=== PATIENT | female | born 1975 | race Caucasian/White ===

== ENCOUNTER 2019-12-07 15:16 | Emergency (ER) | payer OTHER, SELFPAY ==
--- NOTE | 2019-12-07 | US_ITS ---
EXAMINATION: ULTRASOUND PELVIC, COMPLETE CLINICAL INFORMATION: Question torsion left ovary COMPARISON: Pelvic ultrasound 10/15/2019 TECHNIQUE: Transabdominal and transvaginal imaging of the pelvis. Spectral Doppler imaging of the left ovary was performed. FINDINGS: The patient is status post hysterectomy. The patient is status post right oophorectomy. There is free fluid in the right adnexa. No right adnexal mass. The left ovary is only visualized on transabdominal imaging. The left ovary measures 4.4 x 3.0 x 2.9 cm for a volume of 20.0 mL. Normal color Doppler and arterial and venous spectral Doppler waveforms are seen in the left ovary. There is a conflict 2.6 x 1.8 x 2.1 cm lesion in the left ovary which may represent an evolving cyst. Small amount of free fluid in the pelvis. US/US pelvic ovarian doppler IMPRESSION: There is normal color Doppler, and spectral arterial and venous waveforms in the left ovary. Complex 2.6 x 1.8 x 2.1 cm lesion in the left ovary may represent an evolving cyst. Evaluation is somewhat limited on transabdominal imaging as the ovary was not visualized transvaginally. A follow-up ultrasound would be recommended in 3 months to ensure resolution Small amount of free fluid in the pelvis.
--- NOTE | 2019-12-07 | US_ITS ---
EXAMINATION: ULTRASOUND PELVIC, COMPLETE CLINICAL INFORMATION: Question torsion left ovary COMPARISON: Pelvic ultrasound 10/15/2019 TECHNIQUE: Transabdominal and transvaginal imaging of the pelvis. Spectral Doppler imaging of the left ovary was performed. FINDINGS: The patient is status post hysterectomy. The patient is status post right oophorectomy. There is free fluid in the right adnexa. No right adnexal mass. The left ovary is only visualized on transabdominal imaging. The left ovary measures 4.4 x 3.0 x 2.9 cm for a volume of 20.0 mL. Normal color Doppler and arterial and venous spectral Doppler waveforms are seen in the left ovary. There is a conflict 2.6 x 1.8 x 2.1 cm lesion in the left ovary which may represent an evolving cyst. Small amount of free fluid in the pelvis. US/US transvaginal IMPRESSION: There is normal color Doppler, and spectral arterial and venous waveforms in the left ovary. Complex 2.6 x 1.8 x 2.1 cm lesion in the left ovary may represent an evolving cyst. Evaluation is somewhat limited on transabdominal imaging as the ovary was not visualized transvaginally. A follow-up ultrasound would be recommended in 3 months to ensure resolution Small amount of free fluid in the pelvis.
[2019-12-07 17:41] VITALS: BP 145/79; PULSE 81; RESP 16; O2SAT 97; BMI 30.7
--- NOTE | 2019-12-07 18:18 | US_ITS ---
EXAMINATION: ULTRASOUND PELVIC, COMPLETE CLINICAL INFORMATION: Question torsion left ovary COMPARISON: Pelvic ultrasound 10/15/2019 TECHNIQUE: Transabdominal and transvaginal imaging of the pelvis. Spectral Doppler imaging of the left ovary was performed. FINDINGS: The patient is status post hysterectomy. The patient is status post right oophorectomy. There is free fluid in the right adnexa. No right adnexal mass. The left ovary is only visualized on transabdominal imaging. The left ovary measures 4.4 x 3.0 x 2.9 cm for a volume of 20.0 mL. Normal color Doppler and arterial and venous spectral Doppler waveforms are seen in the left ovary. There is a conflict 2.6 x 1.8 x 2.1 cm lesion in the left ovary which may represent an evolving cyst. Small amount of free fluid in the pelvis. US/US pelvic complete IMPRESSION: There is normal color Doppler, and spectral arterial and venous waveforms in the left ovary. Complex 2.6 x 1.8 x 2.1 cm lesion in the left ovary may represent an evolving cyst. Evaluation is somewhat limited on transabdominal imaging as the ovary was not visualized transvaginally. A follow-up ultrasound would be recommended in 3 months to ensure resolution Small amount of free fluid in the pelvis.
--- NOTE | 2019-12-07 18:23 | ED.ABDPAIN ---
HPI - Abdominal Pain General Chief Complaint: Abdominal Pain Stated Complaint: abd pain Time Seen by Provider: 12/07/19 17:30 Source: patient Mode of arrival: ambulatory Limitations: no limitations History of Present Illness HPI narrative: Patient is a 44-year-old female with a past medical history of endometriosis, left ovarian cyst, hysterectomy with only left ovary remaining, anxiety depression presents with on and off abdominal pain worsening in the last few days. States she has foul-smelling stool, calls it a 6 on the stool chart, denies any recent antibiotics or travel. she describes the pain as a pressure and squeezing almost like a contraction which takes her breath away. She also has associated low back pain. She does see an endometriosis specialist at [facility] in [place] and he is concerned about ovarian entrapment. she states he also referred her to a GI specialist because she may have a sphincter issue, she has an appointment in December. She denies fever, nausea vomiting, chest pain or sob. She has tried cyclobenzaprine for pain control with no success. Related Data Home Medications Medication Instructions Recorded Confirmed cetirizine [Zyrtec] 10 mg PO DAILY 12/07/19 12/07/19 citalopram 20 mg PO DAILY 12/07/19 12/07/19 estradiol 1 applic VAGINAL 3XW 12/07/19 12/07/19 hydroxyzine HCl 1 tab PO DAILY 12/07/19 12/07/19 naproxen sodium 500 mg PO Q4-6H 12/07/19 12/07/19 omeprazole 20 mg PO DAILY 12/07/19 12/07/19 oxybutynin chloride 1 tab PO DAILY 12/07/19 12/07/19 Allergies Allergy/AdvReac Type Severity Reaction Status Date / Time vancomycin [VANCOMYCIN] Allergy Mild RASH, Verified 12/07/19 19:41 itchy scalp doxycycline [DOXYCYCLINE] AdvReac Intermediate VOMITING, Verified 12/07/19 19:41 DIARRHEA shellfish derived AdvReac Mild NAUSEA Verified 12/07/19 19:41 seasonal/environmental Allergy Unknown sinusitis Uncoded 12/07/19 19:41 allergi Review of Systems Review of Systems Constitutional: No Weight loss, No Fever, No Chills, No Night Sweats, No Fatigue, No Malaise Eyes: No Eye Pain, No Swelling, No Redness, No Foreign Body, No Discharge, No Vision Changes Cardiovascular: No Chest Pain, No SOB, No Dyspnea on Exertion, No Orthopnea, No Edema, No Palpitations Respiratory: No Cough, No Sputum, No Wheezing, No Smoke Exposure, No Dyspnea Gastrointestinal: +abd pn, +irregular foul smelling stools, + gas Genitourinary: no irregular bleeding, No Dysuria, No Urinary Frequency, No Hematuria, No Urinary Incontinence, No Urgency, No Flank Pain, No Urinary Flow Changes, No Hesitancy Musculoskeletal: + low back pain, No joint pain, No Myalgias, No Joint Swelling Skin: No Skin Lesions, No rash Neuro: No Weakness, No Numbness, No Paresthesias, No Loss of Consciousness, No Dizziness, No Headache Yes all other systems are reviewed and are negative Physical Exam Vital Signs: Vital Signs: Vital Signs Pulse Resp BP Pulse Ox 12/07/19 22:00 73 15 117/69 98 12/07/19 19:24 16 145/76 H 98 12/07/19 17:41 81 16 145/79 H 97 Body Mass Index 30.7 Const: General: cooperative, healthy appearing, comfortable, no acute distress and well developed Nutritional Appearance: obese Orientation/consciousness: patient oriented x3 Limitations: no limitations HENMT: Head: Yes normal to inspection Eyes: General: appearance normal, both eyes and all related structures Pupils: Equal, round and reactive pupils present Neck: Neck: Yes normal visual inspection, Yes full ROM and Yes supple Resp: Effort & Inspection: normal respiratory effort Auscultation: clear to auscultation bilaterally, no crackles, no rales, no rhonchi and no wheezes Cardio: Rate: regular rate Rhythm: regular rhythm Heart sounds: S1 normal heart sound present and S2 normal heart sound present GI: Inspection: Yes normal to inspection Palpation (GI): Soft to palpation and Tenderness to palpation present (GI) in the LLQ, in the RLQ and suprapubicly; not at McBurney's point, Gill's sign negative and Rovsing's sign negative Auscultation: normal bowel sounds Skin: General skin exam: no rashes or lesions noted Neuro: General: patient oriented x3 Cranial nerves: Yes Equal, round and reactive pupils present Extrem: General: Yes normal to inspection and Yes no pedal edema Psych: Appearance: grossly normal Course Course Course Narrative: 44-year-old female with past medical history as endometriosis status post hysterectomy with only a left ovary remaining, she has a known cyst on that ovary, states she has been having abdominal pain for 3 days and foul-smelling abnormal stools, has associated low back pain, denies fever, travel or sick contacts. Will get ovarian ultrasound to rule out torsion, give IV fluids, pain medication, get labs and stool culture, WBC, C diff, ova and parasites. 8:15pm Labs are all grossly normal, UA negative for infection, ultrasound revealed the known left ovarian cysts but no torsion, patient is still waiting for pain medication. will reassess after she receives it. patient also states she has some reflux. will give a GI cocktail. 11:25pm patient feels slightly better, she already has a physician's she sees for her endometriosis in [place] and for this cyst, she will follow-up with him. MDM - Abdominal Pain Lab Data Attestation: I reviewed the patient's lab results. Lab results narrative: urine negative, all stool tests negative for infection or blood thus far, ova and parasites still pending. Result diagrams: 12/07/19 19:22 12/07/19 19:22 Labs: Lab Results 12/07/19 12/07/19 12/07/19 Range/Units 19:22 19:22 19:22 WBC 6.5 (4.8-10.8) X10*3/uL RBC 4.11 L (4.20-5.50) X10*6/uL Hgb 12.3 (12.0-16.0) g/dl Hct 37.4 (37-47) % MCV 91.0 (80-98) fL MCH 29.9 (27.0-33.0) pg MCHC 32.9 (31.0-35.0) g/dl RDW 12.5 (11.0-16.0) % Plt Count 178 (160-400) X10*3/uL MPV 9.7 (9.4-12.3) fL Immature Gran % (Auto) 0.3 (0.0-0.4) % Neut % (Auto) 61.6 (45-73) % Lymph % (Auto) 29.6 (20-40) % [place] % (Auto) 6.5 (2-11) % Eos % (Auto) 1.5 (0-4) % Baso % (Auto) 0.5 (0-2) % Lymph # (Auto) 1.9 (1.2-4.9) X10*3/uL [place] # (Auto) 0.4 (0.1-1.2) X10*3/uL Eos # (Auto) 0.1 (0.0-0.4) X10*3/uL Baso # (Auto) 0.0 (0.0-0.2) X10*3/uL Abs Immat Gran (auto) 0.02 (0.00-0.03) X10*3/uL Absolute Neuts (auto) 4.0 (2.0-8.3) X10*3/uL Absolute Nucleated RBC 0.000 (0.0-0.012) X10*3/uL Nucleated RBC % (auto) 0.0 (0.0-0.2) /100WBC Hold Blue Top SEE NOTE Sodium 139 (135-145) mmol/L Potassium 4.0 (3.3-5.1) mmol/l Chloride 106 (96-108) mmol/L Carbon Dioxide 26 (22-29) mmol/L Anion Gap 11 L (12-20) BUN 11 (9-16) mg/dL Creatinine 0.82 (0.5-1.4) mg/dL Estim Creat Clear Calc 94.6 Estimated GFR > 60 Random Glucose 114 (60-115) mg/dL Calcium 8.6 (8.4-10.2) mg/dL Total Bilirubin 0.4 (0.0-1.0) mg/dL AST 19 (5-31) U/L ALT 13 (0-31) U/L Alkaline Phosphatase 75 (39-117) U/L Total Protein 6.4 L (6.5-8.0) g/dL Albumin 3.9 (3.5-5.0) g/dL Lipase 54 (8-78) U/L Urine Color Urine Appearance Urine pH (5.0-8.0) Ur Specific [place] (1.005-1.025) Urine Protein (NEG-TRACE) MG/DL Urine Glucose (UA) (NEG) MG/DL Urine Ketones (NEG) MG/DL Urine Blood (NEG) Urine Nitrite (NEG) Ur Leukocyte Esterase (NEG) Stool Occult Blood (NEG) Stool Leukocytes, Qual (NEGATIVE) C. difficile Toxin A&B (Negative) C. difficile Antigen (Negative) C. difficile Interpret 12/07/19 12/07/19 12/07/19 Range/Units 19:22 20:45 20:45 WBC (4.8-10.8) X10*3/uL RBC (4.20-5.50) X10*6/uL Hgb (12.0-16.0) g/dl Hct (37-47) % MCV (80-98) fL MCH (27.0-33.0) pg MCHC (31.0-35.0) g/dl RDW (11.0-16.0) % Plt Count (160-400) X10*3/uL MPV (9.4-12.3) fL Immature Gran % (Auto) (0.0-0.4) % Neut % (Auto) (45-73) % Lymph % (Auto) (20-40) % [place] % (Auto) (2-11) % Eos % (Auto) (0-4) % Baso % (Auto) (0-2) % Lymph # (Auto) (1.2-4.9) X10*3/uL [place] # (Auto) (0.1-1.2) X10*3/uL Eos # (Auto) (0.0-0.4) X10*3/uL Baso # (Auto) (0.0-0.2) X10*3/uL Abs Immat Gran (auto) (0.00-0.03) X10*3/uL Absolute Neuts (auto) (2.0-8.3) X10*3/uL Absolute Nucleated RBC (0.0-0.012) X10*3/uL Nucleated RBC % (auto) (0.0-0.2) /100WBC Hold Blue Top Sodium (135-145) mmol/L Potassium (3.3-5.1) mmol/l Chloride (96-108) mmol/L Carbon Dioxide (22-29) mmol/L Anion Gap (12-20) BUN (9-16) mg/dL Creatinine (0.5-1.4) mg/dL Estim Creat Clear Calc Estimated GFR Random Glucose (60-115) mg/dL Calcium (8.4-10.2) mg/dL Total Bilirubin (0.0-1.0) mg/dL AST (5-31) U/L ALT (0-31) U/L Alkaline Phosphatase (39-117) U/L Total Protein (6.5-8.0) g/dL Albumin (3.5-5.0) g/dL Lipase (8-78) U/L Urine Color YELLOW Urine Appearance CLEAR Urine pH 7.5 (5.0-8.0) Ur Specific [place] 1.015 (1.005-1.025) Urine Protein NEG (NEG-TRACE) MG/DL Urine Glucose (UA) NEG (NEG) MG/DL Urine Ketones NEG (NEG) MG/DL Urine Blood NEG (NEG) Urine Nitrite NEG (NEG) Ur Leukocyte Esterase NEG (NEG) Stool Occult Blood NEG (NEG) Stool Leukocytes, Qual (NEGATIVE) C. difficile Toxin A&B Negative (Negative) C. difficile Antigen Negative (Negative) C. difficile Interpret SEE NOTE 12/07/19 Range/Units 20:45 WBC (4.8-10.8) X10*3/uL RBC (4.20-5.50) X10*6/uL Hgb (12.0-16.0) g/dl Hct (37-47) % MCV (80-98) fL MCH (27.0-33.0) pg MCHC (31.0-35.0) g/dl RDW (11.0-16.0) % Plt Count (160-400) X10*3/uL MPV (9.4-12.3) fL Immature Gran % (Auto) (0.0-0.4) % Neut % (Auto) (45-73) % Lymph % (Auto) (20-40) % [place] % (Auto) (2-11) % Eos % (Auto) (0-4) % Baso % (Auto) (0-2) % Lymph # (Auto) (1.2-4.9) X10*3/uL [place] # (Auto) (0.1-1.2) X10*3/uL Eos # (Auto) (0.0-0.4) X10*3/uL Baso # (Auto) (0.0-0.2) X10*3/uL Abs Immat Gran (auto) (0.00-0.03) X10*3/uL Absolute Neuts (auto) (2.0-8.3) X10*3/uL Absolute Nucleated RBC (0.0-0.012) X10*3/uL Nucleated RBC % (auto) (0.0-0.2) /100WBC Hold Blue Top Sodium (135-145) mmol/L Potassium (3.3-5.1) mmol/l Chloride (96-108) mmol/L Carbon Dioxide (22-29) mmol/L Anion Gap (12-20) BUN (9-16) mg/dL Creatinine (0.5-1.4) mg/dL Estim Creat Clear Calc Estimated GFR Random Glucose (60-115) mg/dL Calcium (8.4-10.2) mg/dL Total Bilirubin (0.0-1.0) mg/dL AST (5-31) U/L ALT (0-31) U/L Alkaline Phosphatase (39-117) U/L Total Protein (6.5-8.0) g/dL Albumin (3.5-5.0) g/dL Lipase (8-78) U/L Urine Color Urine Appearance Urine pH (5.0-8.0) Ur Specific [place] (1.005-1.025) Urine Protein (NEG-TRACE) MG/DL Urine Glucose (UA) (NEG) MG/DL Urine Ketones (NEG) MG/DL Urine Blood (NEG) Urine Nitrite (NEG) Ur Leukocyte Esterase (NEG) Stool Occult Blood (NEG) Stool Leukocytes, Qual NEGATIVE (NEGATIVE) C. difficile Toxin A&B (Negative) C. difficile Antigen (Negative) C. difficile Interpret Imaging Data US pelvis: Attestation: I personally reviewed and interpreted this imaging study as follows: My impression: cyst left ovary Radiologist's impression: Dav Anne 44 F 1975 [place] [id number] Ultrasound Report Signed Patient: Jim Anne#: [id number] : 1975Acct:[id number] Age/Sex: 44 / FADM Date: 12/07/19 Loc: .ED Attending Dr: Ordering Physician: AMBER LOVING Date of Service: 12/07/19 Procedure(s): US pelvic complete Accession Number(s): [id number] cc: AMBER LOVING~ EXAMINATION: ULTRASOUND PELVIC, COMPLETE CLINICAL INFORMATION: Question torsion left ovary COMPARISON: Pelvic ultrasound 10/15/2019 TECHNIQUE: Transabdominal and transvaginal imaging of the pelvis. Spectral Doppler imaging of the left ovary was performed. FINDINGS: The patient is status post hysterectomy. The patient is status post right oophorectomy. There is free fluid in the right adnexa. No right adnexal mass. The left ovary is only visualized on transabdominal imaging. The left ovary measures 4.4 x 3.0 x 2.9 cm for a volume of 20.0 mL. Normal color Doppler and arterial and venous spectral Doppler waveforms are seen in the left ovary. There is a conflict 2.6 x 1.8 x 2.1 cm lesion in the left ovary which may represent an evolving cyst. Small amount of free fluid in the pelvis. US/US pelvic complete IMPRESSION: There is normal color Doppler, and spectral arterial and venous waveforms in the left ovary. Complex 2.6 x 1.8 x 2.1 cm lesion in the left ovary may represent an evolving cyst. Evaluation is somewhat limited on transabdominal imaging as the ovary was not visualized transvaginally. A follow-up ultrasound would be recommended in 3 months to ensure resolution Small amount of free fluid in the pelvis. Dictated By:JULIET MURPHY MD Signed By:<Electronically signed by JULIET MURPHY MD in [place]>12/07/191922 Discharge Plan Discharge Clinical Impression: Ovarian cyst Qualifiers: Laterality: left Qualified Code(s): N83.202 - Unspecified ovarian cyst, left side Patient Disposition: Home, Self-Care Instructions: Ovarian Cyst (ED) Additional Instructions: Complex 2.6 x 1.8 x 2.1 cm lesion in the left ovary may represent an evolving cyst. Evaluation is somewhat limited on transabdominal imaging as the ovary was not visualized transvaginally. A follow-up ultrasound would be recommended in 3 months to ensure resolution. Prescriptions: No Action oxybutynin chloride 10 mg tablet extended release 24hr 1 tab PO DAILY RF: 0 naproxen sodium 500 mg Tablet Extended Release 500 mg PO Q4-6H RF: 0 citalopram 20 mg Tablet 20 mg PO DAILY RF: 0 hydroxyzine HCl 25 mg tablet 1 tab PO DAILY RF: 0 estradiol 0.01 % (0.1 mg/gram) cream 1 applic vaginal 3XW RF: 0 omeprazole 20 mg Tablet,Delayed Release (Dr/Ec) 20 mg PO DAILY RF: 0 Zyrtec 10 mg Capsule 10 mg PO DAILY RF: 0 Referrals: Physician,Unknown [Primary Care Provider] - 2 days (Please be sure to follow-up with the physician you are already seeing at [facility] regarding your ovarian cyst. ) [facility] Past Medical History Attestation statement: The following information was validated with the patient. Surgical History History of hysterectomy Social History Social History Alcohol intake: never Smoking Status: Never smoker Use of substances other than those prescribed or required for medical reasons: No Advance Directives: No Advance Directives Information Provided: Yes
--- NOTE | 2019-12-07 18:57 | PC.NURSE ---
PT WAS SEEN BY ALISA PT OFF UNIT TO US URINE SPEC AT THE BEDSIDE
[2019-12-07 19:24] VITALS: BP 145/76; RESP 16; O2SAT 98
[2019-12-07] MEDS: Ketorolac Tromethamine 15 MG/ML VIAL IV ×2 (19:30→23:21)
[2019-12-07 19:32] LABS: MANUAL DIFF FLAG NO
[2019-12-07 19:33] LABS: Basophils Percent Auto 0.5 % (0-2); Eosinophils Absolute Auto 0.1 X10*3/uL (0.0-0.4); Eosinophils Percent Auto 1.5 % (0-4); Hematocrit 37.4 % (37-47); Hemoglobin 12.3 g/dl (12.0-16.0); Imm Gran Abs Auto 0.02 X10*3/uL (0.00-0.03); Imm Gran Pct Auto 0.3 % (0.0-0.4); Lymphocytes Absolute Auto 1.9 X10*3/uL (1.2-4.9); Lymphocytes Percent Auto 29.6 % (20-40); Mean Corpuscular HGB Conc 32.9 g/dl (31.0-35.0); Mean Corpuscular Hemoglobin 29.9 pg (27.0-33.0); Mean Platelet Volume 9.7 fL (9.4-12.3); Monocytes Absolute Auto 0.4 X10*3/uL (0.1-1.2); Monocytes Percent Auto 6.5 % (2-11); Neutrophils Percent Auto 61.6 % (45-73); Platelet Count 178 X10*3/uL (160-400); Red Blood Count 4.11 X10*6/uL (4.20-5.50); Red Cell Distribution Width 12.5 % (11.0-16.0); White Blood Count 6.5 X10*3/uL (4.8-10.8)
[2019-12-07 19:34] LABS: Appearance Urine CLEAR; Color Urine YELLOW; Glucose Urine UA NEG (NEG); Leukocyte Esterase Urine NEG (NEG); Nitrite Urine NEG (NEG); PH 7.5 (5.0-8.0); Specific Gravity - Urine 1.015 (1.005-1.025); Urine Blood NEG (NEG); Urine Ketones NEG (NEG); Urine Protein NEG (NEG-TRACE)
[2019-12-07 19:54] LABS: Alanine Aminotransferase 13 U/L (0-31); Albumin Level 3.9 g/dL (3.5-5.0); Alkaline Phosphatase 75 U/L (39-117); Anion Gap 11 (12-20); Aspartate Amino Transferase 19 U/L (5-31); Bilirubin Total 0.4 mg/dL (0.0-1.0); Blood Urea Nitrogen 11 mg/dL (9-16); Calcium 8.6 mg/dL (8.4-10.2); Carbon Dioxide 26 mmol/L (22-29); Chloride 106 mmol/L (96-108); Creatinine Clr Calc Pharmacy 94.6; Estimated Glomerular Filt Rate > 60; Glucose Random 114 mg/dL (60-115); Lipase 54 U/L (8-78); Sodium 139 mmol/L (135-145); Total Protein 6.4 g/dL (6.5-8.0)
[2019-12-07 21:34] LABS: OBS Int Ctl Valid YES; OBS1 NEG (NEG)
[2019-12-07 22:00] VITALS: BP 117/69; PULSE 73; RESP 15; O2SAT 98
[2019-12-07 22:55] LABS: Leukocytes Stool Qualitative NEGATIVE (NEGATIVE)
[2019-12-07 22:57] LABS: CDIFF Ag Negative (Negative); CDIFF Internal ctrl Dots and bkg OK (V); CDiff Toxin Negative (Negative)
[2019-12-07] MEDS: Milk of Magnesia 30 ML ORAL.SUSP PO (23:10)
[2019-12-07] MEDS: Lidocaine HCl Viscous 2 % 15 ML SOLUTION MUCOUS MEM (23:10)
[2019-12-07] MEDS: Famotidine/PF 20 MG/2 ML VIAL IVPUSH (23:11)
== END 2019-12-08 00:34 | disposition home or self-care (01) ==
PROVIDERS: Physician Assistant; Emergency Provider Internal Medicine
DX: N83.202 Unspecified ovarian cyst, left side (principal); R10.2 Pelvic and perineal pain; M54.5 Low back pain; Z79.899 Other long term (current) drug therapy
CPT/HCPCS: 36415; 76830; 76856; 80053; 81003; 82272; 83690; 85025; 87045; 87046; 87177; 87209; 87324; 87449; 89055; 93975; 96374; 96375; 99284; J1885; J2765

== ENCOUNTER 2020-02-19 16:37 | Outpatient (REF) | payer OTHER, SELFPAY | END 2020-02-19 16:38 | disposition home or self-care (01) | LOC: HO.LAB 16:37 | PROVIDERS: Visit Provider Internal Medicine | DX: Z20.822 Contact with and (suspected) exposure to COVID-19 (principal) | CPT/HCPCS: 36415; C9803; U0003 ==

== ENCOUNTER 2020-09-19 15:46 | Emergency (ER) | payer OTHER, SELFPAY ==
--- NOTE | ~2020-09-19 | MR_ITS ---
EXAMINATION: MR LUMBAR SPINE WITHOUT CONTRAST CLINICAL INFORMATION: Low back pain. COMPARISON: CT scan of the abdomen and pelvis 10/15/2019. TECHNIQUE: MRI of the lumbar spine was obtained using routine sequences without contrast. FINDINGS: Alignment is normal. Vertebral heights are preserved. No acute bone marrow signal changes. Intervertebral disc height and signal intensity is maintained at all levels. Annular contours are normal and there is no canal or neuroforaminal compromise. No mass effect on the traversing or foraminal nerve roots. The tip of the conus medullaris is located at the level of L1-L2. No mass effect on the conus. Visualized distal cord signal intensity is normal. Limited visualization the retroperitoneal anatomy reveals no abnormal finding. MR/MR lumbar spine wo con IMPRESSION: Normal lumbar spine MRI.
[2020-09-19 17:19] VITALS: BP 183/90; PULSE 110; RESP 16; TEMP 36.4; O2SAT 99; BMI 28.3
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
[2020-09-19 17:57] LABS: MANUAL DIFF FLAG NO
[2020-09-19 18:00] VITALS: RESP 20
[2020-09-19 18:00] LABS: Basophils Percent Auto 0.5 % (0-2); Eosinophils Absolute Auto 0.1 X10*3/uL (0.0-0.4); Hematocrit 41.2 % (37-47); Hemoglobin 13.5 g/dl (12.0-16.0); Imm Gran Abs Auto 0.02 X10*3/uL (0.00-0.03); Imm Gran Pct Auto 0.3 % (0.0-0.4); Lymphocytes Absolute Auto 1.9 X10*3/uL (1.2-4.9); Lymphocytes Percent Auto 31.8 % (20-40); Mean Corpuscular HGB Conc 32.8 g/dl (31.0-35.0); Mean Corpuscular Hemoglobin 30.4 pg (27.0-33.0); Mean Corpuscular Volume 92.8 fL (80-98); Mean Platelet Volume 9.5 fL (9.4-12.3); Monocytes Absolute Auto 0.4 X10*3/uL (0.1-1.2); Monocytes Percent Auto 7.2 % (2-11); Neutrophils Absolute Auto 3.5 X10*3/uL (2.0-8.3); Neutrophils Percent Auto 59.2 % (45-73); Platelet Count 202 X10*3/uL (160-400); Red Blood Count 4.44 X10*6/uL (4.20-5.50); White Blood Count 5.9 X10*3/uL (4.8-10.8)
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
[2020-09-19] MEDS: Ketorolac Tromethamine 15 MG/ML VIAL 30 MG IVPUSH (18:09)
[2020-09-19] MEDS: ondansetron HCL 4 MG/2 ML VIAL IVPUSH (18:09)
[2020-09-19] MEDS: 0.9 % Sodium Chloride 1,000 ML 999 ML IV (18:09)
[2020-09-19] MEDS: HYDROmorphone HCl 0.5 MG/0.5 ML SYRINGE IVPUSH (18:09)
--- NOTE | 2020-09-19 18:14 | PC.NURSE ---
PT GAVE PERMISSION TO UPDATE TO FRIEND: FRANNY [phone]
[2020-09-19 18:25] LABS: Anion Gap 12 (12-20); Blood Urea Nitrogen 11 mg/dL (9-16); Carbon Dioxide 29 mmol/L (22-29); Chloride 105 mmol/L (96-108); Creatinine Clr Calc Pharmacy 77.9; Estimated Glomerular Filt Rate > 60; Glucose Random 98 mg/dL (60-115); Potassium 4.1 mmol/L (3.3-5.1); Sodium 142 mmol/L (135-145)
[2020-09-19 20:34] VITALS: BP 113/69; PULSE 69; RESP 16; TEMP 36.6; O2SAT 99
== END 2020-09-19 21:34 | disposition home or self-care (01) ==
PROVIDERS: Emergency Provider Emergency Medicine Emergency Medical Services; PCP Family Medicine
DX: M54.42 Lumbago with sciatica, left side (principal); M54.41 Lumbago with sciatica, right side; Z79.899 Other long term (current) drug therapy
CPT/HCPCS: 36415; 72148; 80048; 85025; 96361; 96374; 96375; 99284; 99285; J1170; J1885; J2405

== ENCOUNTER 2021-02-23 13:53 | Emergency (ER) | payer OTHER, SELFPAY ==
[2021-02-23 16:35] VITALS: BP 125/76; PULSE 65; RESP 16; TEMP 36.8; O2SAT 99; BMI 25.7
== END 2021-02-23 17:35 | disposition left against medical advice (07) ==
PROVIDERS: Emergency Provider Emergency Medicine
DX: R10.9 Unspecified abdominal pain (principal); R07.9 Chest pain, unspecified
CPT/HCPCS: 99281; 99282

== ENCOUNTER 2021-10-10 17:00 | Emergency (ER) | payer OTHER, SELFPAY ==
--- NOTE | ~2021-10-10 | CT_ITS ---
EXAMINATION: HEAD CT WITHOUT CONTRAST CERVICAL SPINE CT WITHOUT CONTRAST CLINICAL INFORMATION: Facial numbness. Numbness/tingling status post adjustment COMPARISON: None. TECHNIQUE: Contiguous axial imaging of the head was performed without the administration of IV contrast. Axial multidetector volumetric images were also performed through the cervical spine without contrast. Multiplanar reconstructed images in coronal and sagittal orientations were submitted. DOSE: 981 mGy-cm FINDINGS: HEAD: There is no evidence of acute intracranial hemorrhage or territorial infarction. No abnormal mass-effect or midline shift. No extra-axial fluid collections. Smith to white matter differentiation is well preserved. The ventricles are normal in size and configuration. . The soft tissues and osseous structures are normal. The sinuses and mastoid air cells are clear. CERVICAL SPINE: Straightening of cervical curvature. Craniocervical and atlantoaxial articulations are maintained. Vertebral body heights are maintained. No acute fracture is identified... Mild disc degeneration at C5-C6, C6-C7. Central canal is maintained. No significant paravertebral soft tissue swelling. No suspicious thyroid findings. Minimal biapical pleural parenchymal scarring. CT/CT cervical spine wo IV con IMPRESSION: 1. No CT evidence of acute intracranial hemorrhage or edematous territorial infarction. 2. No acute fracture or malalignment in the cervical spine.
--- NOTE | ~2021-10-10 | CT_ITS ---
EXAMINATION: HEAD CT WITHOUT CONTRAST CERVICAL SPINE CT WITHOUT CONTRAST CLINICAL INFORMATION: Facial numbness. Numbness/tingling status post adjustment COMPARISON: None. TECHNIQUE: Contiguous axial imaging of the head was performed without the administration of IV contrast. Axial multidetector volumetric images were also performed through the cervical spine without contrast. Multiplanar reconstructed images in coronal and sagittal orientations were submitted. DOSE: 981 mGy-cm FINDINGS: HEAD: There is no evidence of acute intracranial hemorrhage or territorial infarction. No abnormal mass-effect or midline shift. No extra-axial fluid collections. Smith to white matter differentiation is well preserved. The ventricles are normal in size and configuration. . The soft tissues and osseous structures are normal. The sinuses and mastoid air cells are clear. CERVICAL SPINE: Straightening of cervical curvature. Craniocervical and atlantoaxial articulations are maintained. Vertebral body heights are maintained. No acute fracture is identified... Mild disc degeneration at C5-C6, C6-C7. Central canal is maintained. No significant paravertebral soft tissue swelling. No suspicious thyroid findings. Minimal biapical pleural parenchymal scarring. CT/CT head/brain wo IV con IMPRESSION: 1. No CT evidence of acute intracranial hemorrhage or edematous territorial infarction. 2. No acute fracture or malalignment in the cervical spine.
[2021-10-10 17:14] VITALS: BP 130/69; PULSE 79; RESP 18; TEMP 36.6; O2SAT 100; BMI 25.0
[2021-10-10 17:25] LABS: MANUAL DIFF FLAG NO
[2021-10-10 17:35] LABS: Basophils Percent Auto 0.8 % (0-2); Eosinophils Absolute Auto 0.1 X10*3/uL (0.0-0.4); Eosinophils Percent Auto 1.6 % (0-4); Hematocrit 38.4 % (37.0-47.0); Hemoglobin 12.8 g/dl (12.0-16.0); Imm Gran Abs Auto 0.01 X10*3/uL (0.00-0.03); Imm Gran Pct Auto 0.2 % (0.0-0.4); Lymphocytes Absolute Auto 1.9 X10*3/uL (1.2-4.9); Mean Corpuscular HGB Conc 33.3 g/dl (31.0-35.0); Mean Corpuscular Hemoglobin 30.3 pg (27.0-33.0); Mean Corpuscular Volume 90.8 fL (80.0-98.0); Mean Platelet Volume 9.8 fL (9.4-12.3); Monocytes Absolute Auto 0.3 X10*3/uL (0.1-1.2); Monocytes Percent Auto 6.8 % (2-11); Neutrophils Absolute Auto 2.6 x10*3/uL (2.0-8.3); Neutrophils Percent Auto 52.6 % (45-73); Platelet Count 195 X10*3/uL (160-400); Red Blood Count 4.23 X10*6/uL (4.20-5.50); Red Cell Distribution Width 12.4 % (11.0-16.0)
[2021-10-10 17:44] LABS: Anion Gap 13 (12-20); Blood Urea Nitrogen 12 mg/dL (9-16); Calcium 9.6 mg/dL (8.4-10.2); Carbon Dioxide 27 mmol/L (22-29); Chloride 105 mmol/L (96-108); Creatinine Clr Calc Pharmacy 75.1; Estimated Glomerular Filt Rate > 60; Glucose Random 102 mg/dL (60-115); Potassium 4.2 mmol/L (3.3-5.1); Sodium 141 mmol/L (135-145)
--- NOTE | 2021-10-10 19:55 | ED_ITS ---
HPI - General Adult General Chief complaint: General Medical Stated complaint: nausea/tingling in the mouth/L side numb Source: patient Mode of arrival: ambulatory Limitations: no limitations History of Present Illness HPI narrative: 46-year-old female presents with nausea, metallic taste in mouth, and left-sided paresthesia to the face after being adjusted by chiropractor earlier today. She does not report changes in vision, dizziness, weakness, loss of balance, fevers, chills, abdominal pain, and symptoms indicating cauda equina. Onset (ago): hour(s) (Within the hour of arrival) Location: head, face and neck Radiation: non-radiation Severity: moderate Severity scale (1-10): 6 Quality: other (Tingling) Pain Consistency: constant Relieving factors: none Associated symptoms: denies other symptoms Treatments prior to arrival: none Related Data Home Medications Medication Instructions Recorded Confirmed cetirizine 10 mg capsule (Zyrtec) 10 mg PO DAILY 12/07/19 12/07/19 citalopram 20 mg tablet 20 mg PO DAILY 12/07/19 12/07/19 estradiol 0.01% (0.1 mg/gram) 1 applic vaginal 3XW 12/07/19 12/07/19 vaginal cream hydroxyzine HCl 25 mg tablet 1 tab PO DAILY 12/07/19 12/07/19 naproxen sodium 500 mg 500 mg PO Q4-6H 12/07/19 12/07/19 tablet,extended release omeprazole 20 mg tablet,delayed 20 mg PO DAILY 12/07/19 12/07/19 release oxybutynin chloride 10 mg 1 tab PO DAILY 12/07/19 12/07/19 tablet,extended release 24 hr Previous Rx's Medication Instructions Recorded cyclobenzaprine 10 mg tablet 10 mg PO TID PRN pain #14 tabs 09/19/20 lidocaine 4 % topical patch 1 patch topical DAILY PRN pain #30 10/10/21 ea Allergies Allergy/AdvReac Type Severity Reaction Status Date / Time vancomycin [VANCOMYCIN] Allergy Mild RASH, Verified 12/07/19 19:41 itchy scalp doxycycline [DOXYCYCLINE] AdvReac Intermediate VOMITING, Verified 12/07/19 19:41 DIARRHEA shellfish derived AdvReac Mild NAUSEA Verified 12/07/19 19:41 seasonal/environmental Allergy Unknown sinusitis Uncoded 10/26/20 19:41 allergi Review of Systems Review of Systems: Constitutional: No Fever, No Chills ENT/Mouth: No Ear Pain, No Hoarseness, No sore throat Eyes: No Eye Pain, No Swelling, No Redness, No Foreign Body Cardiovascular: No Chest Pain, No SOB Respiratory: No Cough, No Dyspnea Gastrointestinal: No Nausea, No Vomiting, No Diarrhea, No abdominal Pain Genitourinary: No Dysuria, No Hematuria Musculoskeletal: positive neck and shoulder pain, No Myalgias, No Joint Swelling Skin: No Skin lacerations, No rash Neuro: No Weakness, No Numbness, positive left facial Paresthesias, No Loss of Consciousness, No Dizziness, No Headache Psych: No Anxiety/Panic, No Depression Heme/Lymph: no easy bruising, no Lymphadenopathy Endocrine: No Polyuria, No Polydipsia Yes all other systems are reviewed and are negative [facility] Past Medical History Attestation statement: The following information was validated with the patient. Source: old records reviewed Medical History Bladder spasm Endometriosis Surgical History History of hysterectomy Social History Social History Alcohol intake: never Advance Directives: No Advance Directives Information Provided: Yes Physical Exam ED Vital Signs: Vital Signs - 24 hr 10/10/21 17:14 10/10/21 20:58 Temperature 98 F 98.2 F Pulse Rate 79 57 Respiratory Rate 18 16 Blood Pressure 130/69 127/71 Pulse Oximetry 100 100 Oxygen Delivery Method Room Air Room Air BMI result Body Mass Index 25.0 Appearance: Alert. Oriented X3. No acute distress. Eyes: Pupils equal, round and reactive to light. EOMI. Sclera nonicteric. ENT: Pharynx normal. Moist mucous membranes. Neck: Normal inspection. Neck supple. No vertebral tenderness or step-offs. Full range of motion. No axial loading tenderness. CVS: Normal heart rate and rhythm. Apical pulse impulses to extremities. Respiratory: No respiratory distress. Breath sounds normal. Abdomen: Soft and nontender. No rigidity or distention. Skin: Skin warm and dry. Normal skin color. Normal skin turgor. Extremities: No lower extremity edema. Gait well-balanced well coordinated. Neuro: No motor deficit. No sensory deficit. Cranial nerves 2-12 intact. Course Course Course Narrative: 46-year-old female presents with paresthesia to the left side of her face, neck and shoulder pain, and a metallic taste in her mouth after being adjusted by chiropractor earlier today. Patient is neurovascularly intact, cranial nerves 2-12 intact, no focal neural deficits. Gait well-balanced well coordinated. Strength 5/5 to all extremities. NIH stroke scale is 0. Will order CT scan of head and cervical spine. 21:20 CT scan of head and neck are negative for acute findings. Plan of care is discharged home with lidocaine script. Patient will follow-up with physical therapy and primary care physician. Patient verbalized understanding of and agrees plan of care discharge home. Verbalized understanding signs symptoms indicating need for emergent intervention. Medical Decision Making Differential Diagnosis Differential Diagnosis: Disc degeneration, fracture, impingement, muscle strain Medical Records Medical records reviewed: Yes I reviewed the patient's medical records. Lab Data Lab results reviewed: Yes I reviewed the patient's lab results. Result diagrams: 10/10/21 17:21 10/10/21 17:21 Labs: Lab Results 10/10/21 10/10/21 Range/Units 17:21 17:21 WBC 5.0 (4.8-10.8) X10*3/uL RBC 4.23 (4.20-5.50) X10*6/uL Hgb 12.8 (12.0-16.0) g/dl Hct 38.4 (37.0-47.0) % MCV 90.8 (80.0-98.0) fL MCH 30.3 (27.0-33.0) pg MCHC 33.3 (31.0-35.0) g/dl RDW 12.4 (11.0-16.0) % Plt Count 195 (160-400) X10*3/uL MPV 9.8 (9.4-12.3) fL Immature Gran % (Auto) 0.2 (0.0-0.4) % Neut % (Auto) 52.6 (45-73) % Lymph % (Auto) 38.0 (20-40) % Tillman % (Auto) 6.8 (2-11) % Eos % (Auto) 1.6 (0-4) % Baso % (Auto) 0.8 (0-2) % Lymph # (Auto) 1.9 (1.2-4.9) X10*3/uL Tillman # (Auto) 0.3 (0.1-1.2) X10*3/uL Eos # (Auto) 0.1 (0.0-0.4) X10*3/uL Baso # (Auto) 0.0 (0.0-0.2) X10*3/uL Abs Immat Gran (auto) 0.01 (0.00-0.03) X10*3/uL Absolute Neuts (auto) 2.6 (2.0-8.3) x10*3/uL Absolute Nucleated RBC 0.000 (0.0-0.012) X10*3/uL Nucleated RBC % (auto) 0.0 (0.0-0.2) /100WBC Sodium 141 (135-145) mmol/L Potassium 4.2 (3.3-5.1) mmol/L Chloride 105 (96-108) mmol/L Carbon Dioxide 27 (22-29) mmol/L Anion Gap 13 (12-20) BUN 12 (9-16) mg/dL Creatinine 0.85 (0.5-1.4) mg/dL Estim Creat Clear Calc 75.1 Estimated GFR > 60 Random Glucose 102 (60-115) mg/dL Calcium 9.6 (8.4-10.2) mg/dL Imaging Data CT head cervical spine: Attestation: I personally reviewed and interpreted this imaging study as follows: Radiologist's impression: EXAMINATION: HEAD CT WITHOUT CONTRAST CERVICAL SPINE CT WITHOUT CONTRAST CLINICAL INFORMATION: Facial numbness. Numbness/tingling status post adjustment COMPARISON: None. TECHNIQUE: Contiguous axial imaging of the head was performed without the administration of IV contrast. Axial multidetector volumetric images were also performed through the cervical spine without contrast. Multiplanar reconstructed images in coronal and sagittal orientations were submitted. DOSE: 981 mGy-cm FINDINGS: HEAD: There is no evidence of acute intracranial hemorrhage or territorial infarction. No abnormal mass-effect or midline shift. No extra-axial fluid collections.? Smith to white matter differentiation is well preserved. The ventricles are normal in size and configuration. ? . The soft tissues and osseous structures are normal.? The sinuses and mastoid air cells are clear. CERVICAL SPINE: Straightening of cervical curvature. Craniocervical and atlantoaxial articulations are maintained. Vertebral body heights are maintained. No acute fracture is identified... Mild disc degeneration at C5-C6, C6-C7. Central canal is maintained. No significant paravertebral soft tissue swelling. No suspicious thyroid findings. Minimal biapical pleural parenchymal scarring. CT/CT cervical spine wo IV con IMPRESSION: 1. No CT evidence of acute intracranial hemorrhage or edematous territorial infarction. 2. No acute fracture or malalignment in the cervical spine. Discharge Plan Discharge Clinical Impression: Acute strain of neck muscle Patient Disposition: Home, Self-Care Instructions: Cervical Strain (ED), Paresthesia (ED), R.I.C.E. Treatment (ED) Additional Instructions: You were evaluated for muscular strain and numbness and tingling after a chiropractic adjustment. CT scan of head and cervical spine are negative for acute findings requiring emergent intervention. Please continue to follow-up with physical therapy and primary care physician. Use lidocaine patches as needed for muscular strain. Thank you for choosing this emergency department for evaluation. Please follow-up with primary care physician as needed. Return to the emergency department for any new, concerning, or worsening symptoms. Prescriptions: New lidocaine 4 % adhesive patch,medicated 1 patch topical DAILY PRN (Reason: pain) Qty: 30 0RF No Action oxybutynin chloride 10 mg tablet extended release 24hr 1 tab PO DAILY naproxen sodium 500 mg Tablet Extended Release 500 mg PO Q4-6H citalopram 20 mg Tablet 20 mg PO DAILY hydroxyzine HCl 25 mg tablet 1 tab PO DAILY estradiol 0.01 % (0.1 mg/gram) cream 1 applic vaginal 3XW omeprazole 20 mg Tablet,Delayed Release (Dr/Ec) 20 mg PO DAILY Zyrtec 10 mg Capsule 10 mg PO DAILY cyclobenzaprine 10 mg tablet 10 mg PO TID PRN (Reason: pain) Qty: 14 0RF Interventions: ED Discharge Assessment Last Done: 10/10/21 21:50 Discharge Date/Time: 10/10/21 21:52
[2021-10-10] MEDS: Ketorolac Tromethamine 30 MG/ML VIAL IVPUSH (20:52)
[2021-10-10 20:58] VITALS: BP 127/71; PULSE 57; RESP 16; TEMP 36.8; O2SAT 100
== END 2021-10-10 21:52 | disposition home or self-care (01) ==
PROVIDERS: Emergency Provider Emergency Medicine; PCP Family Medicine
DX: S16.1XXA Strain of muscle, fascia and tendon at neck level, initial encounter (principal); X58.XXXA Exposure to other specified factors, initial encounter; Y93.89 Activity, other specified; Y92.538 Other ambulatory health services establishments as the place of occurrence of the external cause; Y99.9 Unspecified external cause status
CPT/HCPCS: 36415; 70450; 72125; 80048; 85025; 96374; 99284; J1885

== ENCOUNTER 2023-01-20 15:13 | Emergency (ER) | payer OTHER, SELFPAY ==
--- NOTE | ~2023-01-20 | XR_ITS ---
EXAMINATION: XR SHOULDER, LEFT CLINICAL INFORMATION: No injury, pain COMPARISON: None available. TECHNIQUE: AP external rotation, Grashey, scapular Y, and axillary views of the left shoulder. FINDINGS: The bones and soft tissues are normal. No fracture. Glenohumeral and acromioclavicular alignment is anatomic with normal joint space. No abnormal soft tissue calcifications. XR/XR shoulder LT min 2V IMPRESSION: Normal left shoulder.
[2023-01-20 16:09] VITALS: BP 122/66; PULSE 72; RESP 16; TEMP 37.2; O2SAT 99; BMI 26.3
--- NOTE | 2023-01-20 17:01 | ED_ITS ---
HPI - General Adult General Chief complaint: General Medical Stated complaint: headache,left arm numbness and tingling Time Seen by Provider: 01/20/23 16:56 Source: patient Mode of arrival: ambulatory Limitations: no limitations History of Present Illness HPI narrative: Patient is a 47-year-old female presenting to the emergency department with complaint of worsening left lateral neck and shoulder pain for the past 3 days. Patient reports symptoms began around 6 months ago, then worsened 2 months ago. Was seen at the [facility] and given cortisone injection approximately 3 weeks ago. States that had helped briefly and pain has significantly increased over the past 3 days. Also complains of numbness and tingling radiating down left arm to all fingers of left hand. States pain increases the most with external rotation of left shoulder. Has been taking naproxen at home with little relief. States that she feels her neck pain is causing difficulty with swallowing. Denies sore throat. Denies fevers. MD complaint: Neck and shoulder pain Onset (ago): day(s) Location: neck, left and upper extremity Radiation: distal Severity: severe Quality: burning Pain Consistency: constant Relieving factors: none Exacerbating factors: movement Associated symptoms: other (Complains of difficulty swallowing related to neck pain) Treatments prior to arrival: NSAID Related Data Home Medications Medication Instructions Recorded Confirmed cetirizine 10 mg capsule (Zyrtec) 10 mg PO DAILY 12/07/19 12/07/19 citalopram 20 mg tablet 20 mg PO DAILY 12/07/19 12/07/19 estradiol 0.01% (0.1 mg/gram) 1 applic vaginal 3XW 12/07/19 12/07/19 vaginal cream hydroxyzine HCl 25 mg tablet 1 tab PO DAILY 12/07/19 12/07/19 naproxen sodium 500 mg 500 mg PO Q4-6H 12/07/19 12/07/19 tablet,extended release omeprazole 20 mg tablet,delayed 20 mg PO DAILY 12/07/19 12/07/19 release oxybutynin chloride 10 mg 1 tab PO DAILY 12/07/19 12/07/19 tablet,extended release 24 hr Previous Rx's Medication Instructions Recorded cyclobenzaprine 10 mg tablet 10 mg PO TID PRN pain #14 tabs 09/19/20 lidocaine 4 % topical patch 1 patch topical DAILY PRN pain #30 10/10/21 ea cyclobenzaprine 5 mg tablet 5 mg PO TID PRN muscle spasm #10 01/20/23 tabs prednisone 20 mg tablet 40 mg (2 x 20 mg) PO DAILY #8 tabs 01/20/23 Allergies Allergy/AdvReac Type Severity Reaction Status Date / Time vancomycin [VANCOMYCIN] Allergy Mild RASH, Verified 01/20/23 16:08 itchy scalp doxycycline [DOXYCYCLINE] AdvReac Intermediate VOMITING, Verified 01/20/23 16:08 DIARRHEA shellfish derived AdvReac Mild NAUSEA Verified 01/20/23 16:08 seasonal/environmental Allergy Unknown sinusitis Uncoded 01/20/23 16:08 allergi Review of Systems Review of Systems: As per HPI. Yes all other systems are reviewed and are negative Constitutional: Constitutional: Reports as [facility] Past Medical History Medical History Bladder spasm Endometriosis Surgical History History of hysterectomy Social History Social History Alcohol intake: never Advance Directives: No Advance Directives Information Provided: No Physical Exam ED Vital Signs: Vital Signs - 24 hr 01/20/23 16:09 Temperature 99.0 F Pulse Rate 72 Respiratory Rate 16 Blood Pressure 122/66 Pulse Oximetry 99 Oxygen Delivery Method Room Air BMI result Body Mass Index 26.3 Vital signs have been reviewed and appear to be correct. Blood pressure normal. Heart rate normal. Respiratory rate normal. Temperature normal. Oxygen saturation normal. Const General: cooperative, healthy appearing and no acute distress Orientation/consciousness: oriented to person, oriented to place, oriented to time and patient oriented x3 Limitations: no limitations HENMT Other: No difficulty managing secretions, no trismus Head: Yes normocephalic and Yes atraumatic Ears: external ears normal General nose exam: Normal external nose present Face and sinus: Yes face symmetric Mouth: Normal oral and palatal mucosa present, oropharynx normal and moist mucous membranes Throat: Yes posterior oropharynx normal, Yes tonsils normal, Yes uvula midline and No uvular edema Eyes Pupils: Equal, round and reactive pupils present Neck Neck: Yes normal visual inspection and Yes supple Lymphatic: no lymphadenopathy noted Resp Effort & Inspection: normal respiratory effort and able to speak in complete sentences Auscultation: clear to auscultation bilaterally Cardio Rate: regular rate Rhythm: regular rhythm Heart sounds: S1 normal heart sound present and S2 normal heart sound present GI Palpation (GI): Soft to palpation and nontender Auscultation: normoactive bowel sounds General: Yes no CVA tenderness Back/Spine/Pelvis Back: no CVA tenderness Cervical Spine: normal cervical lordosis, cervical ROM normal, pain with cervical ROM, cervical spasm (Left lateral), No Cervical spine tenderness and No step off deformity Skin General skin exam: elasticity normal and turgor normal Neuro General: oriented to person, oriented to place, oriented to time, patient oriented x3, gait normal, tone normal, moves all extremities, Normal light touch and pain sensation, no focal motor deficits, CN's II-XI intact bilaterally and deep tendon reflexes 2+ bilaterally Cranial nerves: Yes Equal, round and reactive pupils present Cognition (Neuro): normal cognition Motor exam (neuro): 5/5 motor strength present throughout, Normal motor muscle tone present throughout and Motor abnormalities not present Extrem General: Yes full ROM, Yes no pedal edema and Yes no calf tenderness Left upper extremity: shoulder/upper arm Details: inspection abnormal, tenderness Location: of the A-C joint, axillary nerve sensory function normal and abnormal ROM Details: with range as follows (limited with external rotation, abduction); no swelling and hand Details: vascular exam Details: radial pulse present and normal capillary refill Psych Mental Status: mental status grossly normal Affect: normal affect Thought process: Normal thought process present Medications Administered Discontinued Medications Generic Name Dose Route Start Last Admin Trade Name Williamq PRN Reason Stop Dose Admin Cyclobenzaprine HCl 10 mg 01/20/23 17:54 01/20/23 18:11 Cyclobenzaprine Hcl 10 Mg Tablet PO 01/20/23 17:55 10 mg ONCE ONE Administration Lidocaine 1 patch 01/20/23 17:54 01/20/23 18:12 Lidocaine 4 % Patch Adh..Patch TRANSDERMA 01/20/23 17:55 Not Given ONCE ONE Protocol Prednisone 40 mg 01/20/23 17:54 01/20/23 18:11 Prednisone 20 Mg Tablet PO 01/20/23 17:55 40 mg ONCE ONE Administration Medical Decision Making Medical Decision Making MDM Narrative: Patient is a 47-year-old female presenting to the emergency department with complaint of worsening left lateral neck and shoulder pain for the past 3 days. On exam patient is awake, A+Ox3, VS WNL, afebrile, normal neurological exam without focal deficits, physical exam findings as above. Given reported symptoms and physical exam findings, initial differential includes rotator cuff strain, cervical muscle strain, cervical radiculopathy. Swabs for flu, RSV, COVID, and strep all negative. X-ray notable for normal left shoulder. My interpretation is in agreement with the radiologist's interpretation. Patient stating she prefers to avoid opioid pain medication due to adverse effects. Will treat with Flexeril and prednisone, lidocaine patches. Instructed patient to follow-up with PCP and will refer to orthopedics for further evaluation of shoulder pain. Will also refer to ENT for swallowing concerns. Return precautions discussed at bedside. Patient verbalized understanding of and agre ement with plan. Differential Diagnosis Differential Diagnoses: The differential diagnosis associated with the presentation includes As per MDM. Lab Data [facility] Lab Attestation statement: I reviewed the patient's lab results. As per [facility]. Labs: Lab Results 01/20/23 01/20/23 Range/Units 16:53 16:58 Influenza Type A (PCR) NEGATIVE (Negative) Influenza Type B (PCR) NEGATIVE (Negative) RSV RNA Qual (PCR) NEGATIVE (Negative) SARS-CoV-2 RNA (RT-PCR) NEGATIVE (Negative) S. pyogenes GrpA JOHN Negative (Negative) Independent Interpretation I performed an independent interpretation of an: Plain X-Ray Interpretation: No abnormal findings on left shoulder x-ray Radiology Impression Discussion of test interpretation with radiology: I have reviewed the radiologist's reading. Radiologist Impression: XR/XR shoulder LT min 2V IMPRESSION: Normal left shoulder. External Record Review External record reviewed: Inpatient record, Office record and Outpatient record Prescription Management I considered prescription management with: Pain Medication and Other Discharge Plan Discharge Clinical Impression: Cervical radiculopathy Rotator cuff injury Qualifiers: Encounter type: initial encounter Laterality: left Qualified Code(s): S46.002A - Unspecified injury of muscle(s) and tendon(s) of the rotator cuff of left shoulder, initial encounter Patient Disposition: Home, Self-Care Instructions: Rotator Cuff Injury (ED), Cervical Radiculopathy (ED), Neck Pain (ED), Rotator Cuff Injury Exercises (DC) Additional Instructions: You were evaluated in the emergency department with complaint of neck and shoulder pain. Your imaging did not show any evidence of a fracture or other concerning findings. Your pain is likely related to a muscle strain and inflammation of nerves. We recommend taking 600mg ibuprofen or 650mg Tylenol. If necessary, you can alternate these medications every three hours. For example, at noon take Tylenol, then at 3:00 take ibuprofen, then at 6:00 take Tylenol, etc. You are also being prescribed a muscle relaxer which you can use up to every 8 hours as needed as well as a short course of oral steroids to decrease inflammation. You should follow up with your primary care provider as you may require physical therapy to improve your symptoms. Return to the emergency department if you develop worsening neck pain or stiffness, new weakness, numbness, or tingling to your arm, severe headaches, or any other concerning symptoms. You are being referred to ENT for your concerns about difficulty swallowing, please contact their office to schedule appointment. You are being referred to Orthopedics for further evaluation of your shoulder pain, please call their office to schedule appointment. Prescriptions: New cyclobenzaprine 5 mg tablet 5 mg PO TID PRN (Reason: muscle spasm) Qty: 10 0RF prednisone 20 mg tablet 40 mg PO DAILY Qty: 8 0RF No Action oxybutynin chloride 10 mg tablet extended release 24hr 1 tab PO DAILY naproxen sodium 500 mg Tablet Extended Release 500 mg PO Q4-6H citalopram 20 mg Tablet 20 mg PO DAILY hydroxyzine HCl 25 mg tablet 1 tab PO DAILY estradiol 0.01 % (0.1 mg/gram) cream 1 applic vaginal 3XW omeprazole 20 mg Tablet,Delayed Release (Dr/Ec) 20 mg PO DAILY Zyrtec 10 mg Capsule 10 mg PO DAILY cyclobenzaprine 10 mg tablet 10 mg PO TID PRN (Reason: pain) Qty: 14 0RF lidocaine 4 % adhesive patch,medicated 1 patch topical DAILY PRN (Reason: pain) Qty: 30 0RF Referrals: [facility] [Provider Group] Miguel Campbell [Physician] - Stand Alone Forms: Work/School Release
[2023-01-20 17:09] LABS: IDNOW Serial# 6674DD1D; Strep A Nucleic Acid Negative (Negative)
[2023-01-20 17:42] LABS: Influenza A PCR NEGATIVE (Negative); Influenza B PCR NEGATIVE (Negative); Resp Syncy Virus RNA Qual PCR NEGATIVE (Negative); SARS COV2 PCR INHOUSE NEGATIVE (Negative)
[2023-01-20] MEDS: Cyclobenzaprine HCl 10 MG TABLET PO (18:11)
[2023-01-20] MEDS: predniSONE 20 MG TABLET 40 MG PO (18:11)
== END 2023-01-20 18:59 | disposition home or self-care (01) ==
PROVIDERS: Nurse Practitioner Family; Emergency Provider Emergency Medicine
DX: M54.12 Radiculopathy, cervical region (principal); S46.002A Unspecified injury of muscle(s) and tendon(s) of the rotator cuff of left shoulder, initial encounter; X58.XXXA Exposure to other specified factors, initial encounter; Y93.9 Activity, unspecified; Y92.9 Unspecified place or not applicable; Y99.9 Unspecified external cause status; Z20.822 Contact with and (suspected) exposure to COVID-19; Z20.828 Contact with and (suspected) exposure to other viral communicable diseases
CPT/HCPCS: 0241U; 73030; 87651; 99283; 99284

== ENCOUNTER 2023-01-28 13:43 | Emergency (ER) | payer OTHER, SELFPAY ==
[2023-01-28 14:08] VITALS: BP 126/70; BP 145/97; PULSE 89; PULSE 99; RESP 18; TEMP 37.1; O2SAT 100; O2SAT 98; BMI 25.9
--- NOTE | 2023-01-28 14:09 | ED_ITS ---
HPI - General Adult General Chief complaint: Neuro Symptoms/Deficit Stated complaint: STROKE ALESTERLING,WHOLE BODY TINGLING/NUMBNESS,LKW T-2 Time Seen by Provider: 01/28/23 14:09 History of Present Illness HPI narrative: The patient is a 47-year-old female who presents with complaints of left-sided numbness on all of her body. She says this has been going on for about 2 days. Two days ago she went to the emergency room at [facility] and had a noncontrast head CT that was negative. She was discharged from the emergency room. Yesterday she went to the emergency room at [facility] in [place] where she had a CT angiogram of the head and neck that was also negative and she was discharged. Today she has been calling her primary care provider at the [facility] in [place] explaining that she continues to have left- sided numbness on her body and also that she has a strange taste in her mouth. She also has a headache. She also has chest pain. She says that she was advised by the provider at the [facility] to go to emergency room again and get further evaluation. Related Data Home Medications Medication Instructions Recorded Confirmed cetirizine 10 mg capsule (Zyrtec) 10 mg PO DAILY 12/07/19 12/07/19 citalopram 20 mg tablet 20 mg PO DAILY 12/07/19 12/07/19 estradiol 0.01% (0.1 mg/gram) 1 applic vaginal 3XW 12/07/19 12/07/19 vaginal cream hydroxyzine HCl 25 mg tablet 1 tab PO DAILY 12/07/19 12/07/19 naproxen sodium 500 mg 500 mg PO Q4-6H 12/07/19 12/07/19 tablet,extended release omeprazole 20 mg tablet,delayed 20 mg PO DAILY 12/07/19 12/07/19 release oxybutynin chloride 10 mg 1 tab PO DAILY 12/07/19 12/07/19 tablet,extended release 24 hr Previous Rx's Medication Instructions Recorded cyclobenzaprine 10 mg tablet 10 mg PO TID PRN pain #14 tabs 09/19/20 lidocaine 4 % topical patch 1 patch topical DAILY PRN pain #30 10/10/21 ea cyclobenzaprine 5 mg tablet 5 mg PO TID PRN muscle spasm #10 01/20/23 tabs prednisone 20 mg tablet 40 mg (2 x 20 mg) PO DAILY #8 tabs 01/20/23 Allergies Allergy/AdvReac Type Severity Reaction Status Date / Time vancomycin [VANCOMYCIN] Allergy Mild RASH, Verified 01/20/23 16:08 itchy scalp doxycycline [DOXYCYCLINE] AdvReac Intermediate VOMITING, Verified 01/20/23 16:08 DIARRHEA shellfish derived AdvReac Mild NAUSEA Verified 01/20/23 16:08 seasonal/environmental Allergy Unknown sinusitis Uncoded 01/20/23 16:08 allergi Review of Systems 2 Review of Systems: Yes all other systems are reviewed and are negative [facility] Past Medical History Medical History Bladder spasm Endometriosis Surgical History History of hysterectomy Social History Social History Alcohol intake: never Advance Directives: No Advance Directives Information Provided: No Physical Exam ED Vital Signs: Vital Signs - 24 hr 01/28/23 14:08 01/28/23 15:25 Temperature 98.7 F 97.4 F Pulse Rate 89 99 Respiratory Rate 18 16 Blood Pressure 126/70 110/64 Pulse Oximetry 100 98 Oxygen Delivery Method Room Air Room Air BMI result Body Mass Index 25.9 Const Other: Patient was awake and alert. She looks fatigued but not in acute distress. Her no obvious focal neurological deficit. Not obviously ill. HENMT Other: Face is symmetrical. Tongue is midline. Mucous membranes moist. Eyes Other: Pupils are round equal, conjunctivae are clear, extraocular movements intact, visual haq are intact to confrontation Neck Other: Moving her neck easily, no neck swelling Resp Other: Lungs are clear bilaterally Cardio Other: The patient has regular rate and rhythm no murmur GI Other: Abdomen is flat and soft Skin Other: Skin is dry and unremarkable. Neuro Other: The patient is awake, alert, oriented, appropriate. She follows commands. Eye movements are intact. Visual haq are intact to confrontation. Speech is clear and appropriate. Face is symmetrical. She moves all 4 extremities symmetrically. There is no pronator drift. She reports diminished sensation on the left side of her body but sensation is not absent. She has 2+ reflexes at the biceps, triceps, knees, ankles. Toes go down bilaterally. Extrem Other: No peripheral edema, no calf swelling or tenderness Medications Administered Discontinued Medications Generic Name Dose Route Start Last Admin Trade Name Shelley PRN Reason Stop Dose Admin Sodium Chloride 1,000 mls @ 999 mls/hr 01/28/23 14:15 01/28/23 14:24 Ns IV 01/28/23 15:15 999 mls/hr .Q1H1M BRITTNEY Administration Ketorolac Tromethamine 15 mg 01/28/23 14:16 01/28/23 14:23 Ketorolac Tromethamine 15 Mg/Ml Vial IVPUSH 01/28/23 14:17 15 mg ONCE ONE Administration Metoclopramide HCl 10 mg 01/28/23 14:16 01/28/23 14:23 Metoclopramide Hcl 10 Mg/2 Ml Vial IVPUSH 01/28/23 14:17 10 mg ONCE ONE Administration Medical Decision Making Medical Decision Making [facility] Narrative: The patient is a 47-year-old woman who presents by ambulance for evaluation of neurological symptoms as well as headache and chest pain. Her primary complaint seems to be related to a sense of diminished sensation or numbness on the left side of the body. She is also complaining a lot of a strange taste in her mouth. She has no objective neurological deficits on exam. She apparently had a negative head CT at [facility] in [place] 2 days ago. Yesterday evening she was seen at [facility] where she had a negative CT angiogram of the head neck and was discharged. My overall impression is that the patient may be having some kind of a migraine like phenomenon. I do not have a high suspicion for an acute neurological emergency. EKG is normal. Labs are normal. [facility] that I get an MRI of the brain if possible. There were no MRI slots available today. I do not think the patient is exhibiting signs of neurological or neurosurgical emergency that would warrant any extraordinary efforts to get an MRI today or to transfer the patient to another hospital. The patient seemed to be somewhat better after dose of ketorolac and metoclopramide and IV fluids. I think the patient may be discharged to follow- up with her regular PCP for an outpatient evaluation of these symptoms. Interestingly I reviewed old records for this patient in an ER visit on 10/10/2021 showed presentation with left-sided paresthesias to the face and a metallic taste in the mouth after a chiropractic manipulation. Today she is complaining of a minty taste in her mouth. Lab Data 01/28/23 14:48 01/28/23 14:48 Labs: Lab Results 01/28/23 01/28/23 Range/Units 14:48 16:07 WBC 6.5 (4.8-10.8) X10*3/uL RBC 4.30 (4.20-5.50) X10*6/uL Hgb 12.8 (12.0-16.0) g/dl Hct 38.4 (37.0-47.0) % MCV 89.3 (80.0-98.0) fL MCH 29.8 (27.0-33.0) pg MCHC 33.3 (31.0-35.0) g/dl RDW 12.7 (11.0-16.0) % Plt Count 190 (160-400) X10*3/uL MPV 8.8 L (9.4-12.3) fL Immature Gran % (Auto) 0.5 H (0.0-0.4) % Neut % (Auto) 60.4 (45-73) % Lymph % (Auto) 30.2 (20-40) % [place] % (Auto) 7.1 (2-11) % Eos % (Auto) 1.5 (0-4) % Baso % (Auto) 0.3 (0-2) % Lymph # (Auto) 2.0 (1.2-4.9) X10*3/uL [place] # (Auto) 0.5 (0.1-1.2) X10*3/uL Eos # (Auto) 0.1 (0.0-0.4) X10*3/uL Baso # (Auto) 0.0 (0.0-0.2) X10*3/uL Abs Immat Gran (auto) 0.03 (0.00-0.03) X10*3/uL Absolute Neuts (auto) 3.9 (2.0-8.3) x10*3/uL Absolute Nucleated RBC 0.000 (0.0-0.012) X10*3/uL Nucleated RBC % (auto) 0.0 (0.0-0.2) /100WBC PT 13.8 H (11.1-13.3) SEC INR 1.1 (0.9-1.1) Sodium 141 (135-145) mmol/L Potassium 4.0 (3.3-5.1) mmol/L Chloride 107 (96-108) mmol/L Carbon Dioxide 28 (22-29) mmol/L Anion Gap 10 L (12-20) BUN 12 (9-16) mg/dL Creatinine 0.77 (0.5-1.4) mg/dL Estim Creat Clear Calc 90.0 Estimated GFR > 60 Random Glucose 91 (60-115) mg/dL Calcium 9.0 D (8.4-10.2) mg/dL Magnesium 2.1 (1.6-2.6) mg/dL Total Bilirubin 1.5 H (0.0-1.0) mg/dL Direct Bilirubin 0.5 (0.0-0.5) mg/dL AST 14 (5-31) U/L ALT 12 (0-31) U/L Alkaline Phosphatase 46 (39-117) U/L Total Creatine Kinase 18 L (26-140) U/L Troponin I High Sens < 2.7 (<3.5-17.0) ng/L C-Reactive Protein 0.12 (< or = 0.50) mg/dL B-Natriuretic Peptide 10 (<100) pg/mL Total Protein 6.3 L (6.5-8.0) g/dL Albumin 3.9 (3.5-5.0) g/dL Beta HCG, Quant < 2 mIU/mL Urine Color Yellow Urine Appearance Clear Urine pH 7.5 (5.0-9.0) Ur Specific [place] 1.010 (1.005-1.025) Urine Protein Negative (Neg-Trace) mg/dL Urine Glucose (UA) Negative (Negative) mg/dL Urine Ketones Negative (Negative) mg/dL Urine Blood Negative (Negative) Urine Nitrite Negative (Negative) Ur Leukocyte Esterase Negative (Negative) Ethyl Alcohol < 10 mg/dL Independent Interpretation I performed an independent interpretation of an: EKG Interpretation: EKG at 14:38 shows normal sinus rhythm at 75 beats per minute. It is normal EKG. No change from previous EKG. Discharge Plan Discharge Clinical Impression: Left sided numbness, Abnormal taste in mouth Patient Disposition: Home, Self-Care Additional Instructions: Your EKG and blood testing today are unremarkable. I do not think that you are exhibiting signs of a stroke or other acute neurological emergency. I think your symptoms will likely take some time to figure out. I recommend you continue to stay in touch with your provider at the [facility] in order to arrange outpatient neurology follow-up. Return to the emergency was significantly worse. Prescriptions: No Action oxybutynin chloride 10 mg tablet extended release 24hr 1 tab PO DAILY naproxen sodium 500 mg Tablet Extended Release 500 mg PO Q4-6H citalopram 20 mg Tablet 20 mg PO DAILY hydroxyzine HCl 25 mg tablet 1 tab PO DAILY estradiol 0.01 % (0.1 mg/gram) cream 1 applic vaginal 3XW omeprazole 20 mg Tablet,Delayed Release (Dr/Ec) 20 mg PO DAILY Zyrtec 10 mg Capsule 10 mg PO DAILY cyclobenzaprine 10 mg tablet 10 mg PO TID PRN (Reason: pain) Qty: 14 0RF lidocaine 4 % adhesive patch,medicated 1 patch topical DAILY PRN (Reason: pain) Qty: 30 0RF cyclobenzaprine 5 mg tablet 5 mg PO TID PRN (Reason: muscle spasm) Qty: 10 0RF prednisone 20 mg tablet 40 mg PO DAILY Qty: 8 0RF Referrals: [facility] [Provider Group] (Left-sided numbness) Ciara Rachel NP [Primary Care Provider] - Interventions: ED Discharge Assessment Last Done: 01/28/23 16:59
--- NOTE | 2023-01-28 14:15 | ECG_ITS ---
Test Reason : WEAKNESS Blood Pressure : / mmHG Vent. Rate : 075 BPM Atrial Rate : 075 BPM P-R Int : 132 ms QRS Dur : 088 ms QT Int : 370 ms P-R-T Axes : 050 004 029 degrees QTc Int : 413 ms Normal sinus rhythm Normal ECG When compared with ECG of 15-OCT-2019 13:11, No significant change was found Referred By: Hermelindo Farrell Electronically Signed By:JONES HUFF MD
[2023-01-28] MEDS: Metoclopramide HCl 10 MG/2 ML VIAL IVPUSH (14:23)
[2023-01-28] MEDS: Ketorolac Tromethamine 15 MG/ML VIAL IVPUSH (14:23)
[2023-01-28] MEDS: 0.9 % Sodium Chloride 1,000 ML 999 ML IV (14:24)
[2023-01-28 14:53] LABS: MANUAL DIFF FLAG NO
[2023-01-28 14:55] LABS: Basophils Percent Auto 0.3 % (0-2); Eosinophils Absolute Auto 0.1 X10*3/uL (0.0-0.4); Eosinophils Percent Auto 1.5 % (0-4); Hematocrit 38.4 % (37.0-47.0); Hemoglobin 12.8 g/dl (12.0-16.0); Imm Gran Abs Auto 0.03 X10*3/uL (0.00-0.03); Imm Gran Pct Auto 0.5 % (0.0-0.4); Lymphocytes Percent Auto 30.2 % (20-40); Mean Corpuscular HGB Conc 33.3 g/dl (31.0-35.0); Mean Corpuscular Hemoglobin 29.8 pg (27.0-33.0); Mean Corpuscular Volume 89.3 fL (80.0-98.0); Mean Platelet Volume 8.8 fL (9.4-12.3); Monocytes Absolute Auto 0.5 X10*3/uL (0.1-1.2); Monocytes Percent Auto 7.1 % (2-11); Neutrophils Absolute Auto 3.9 x10*3/uL (2.0-8.3); Neutrophils Percent Auto 60.4 % (45-73); Platelet Count 190 X10*3/uL (160-400); Red Cell Distribution Width 12.7 % (11.0-16.0); White Blood Count 6.5 X10*3/uL (4.8-10.8)
[2023-01-28 15:02] LABS: INTERNATIONAL NORM RATIO 1.1 (0.9-1.1); Prothrombin Time 13.8 SEC (11.1-13.3)
[2023-01-28 15:11] LABS: Alanine Aminotransferase 12 U/L (0-31); Albumin Level 3.9 g/dL (3.5-5.0); Alkaline Phosphatase 46 U/L (39-117); Anion Gap 10 (12-20); Aspartate Amino Transferase 14 U/L (5-31); Bilirubin Direct 0.5 mg/dL (0.0-0.5); Bilirubin Total 1.5 mg/dL (0.0-1.0); Blood Urea Nitrogen 12 mg/dL (9-16); C Reactive Protein 0.12 mg/dL (< or = 0.50); Carbon Dioxide 28 mmol/L (22-29); Chloride 107 mmol/L (96-108); Estimated Glomerular Filt Rate > 60; Glucose Random 91 mg/dL (60-115); Magnesium 2.1 mg/dL (1.6-2.6); Sodium 141 mmol/L (135-145); Total Protein 6.3 g/dL (6.5-8.0)
[2023-01-28 15:15] LABS: Ethanol < 10 mg/dL
[2023-01-28 15:16] LABS: B Type Natriuretic Peptide 10 pg/mL (<100)
[2023-01-28 15:19] LABS: HCG Quantitative < 2 mIU/mL; Troponin-I High Sensitivity < 2.7 ng/L (<3.5-17.0)
[2023-01-28 15:25] VITALS: BP 110/64; PULSE 99; RESP 16; TEMP 36.3; O2SAT 98
[2023-01-28 16:21] LABS: Appearance Urine Clear; Color Urine Yellow; Glucose Urine UA Negative (Negative); Leukocyte Esterase Urine Negative (Negative); Nitrite Urine Negative (Negative); PH 7.5 (5.0-9.0); Urine Blood Negative (Negative); Urine Ketones Negative (Negative); Urine Protein Negative (Neg-Trace)
[2023-01-28 18:54] LABS: Erythrocyte Sedimentation Rate 2 MM/HR (0-20)
== END 2023-01-28 16:59 | disposition home or self-care (01) ==
PROVIDERS: Emergency Provider Emergency Medicine; PCP Nurse Practitioner Family
DX: R20.0 Anesthesia of skin (principal); R07.89 Other chest pain; Z79.899 Other long term (current) drug therapy; R06.02 Shortness of breath
CPT/HCPCS: 36415; 80048; 80076; 80307; 81003; 82550; 83735; 83880; 84484; 84702; 85025; 85610; 85652; 86140; 93005; 96374; 96375; 99284; J1885; J2765

== ENCOUNTER → 2023-01-28 14:15 | Outpatient (BNV) | payer OTHER, SELFPAY | PROVIDERS: Emergency Provider Emergency Medicine; PCP Nurse Practitioner Family; Visit Provider Internal Medicine Cardiovascular Disease | DX: R07.9 Chest pain, unspecified (principal); R53.1 Weakness | CPT/HCPCS: 93010 ==

== ENCOUNTER 2023-09-11 18:30 | Emergency (ER) | payer OTHER, SELFPAY ==
[2023-09-11 18:33] VITALS: BP 192/109; PULSE 123; RESP 22; TEMP 36.6; O2SAT 99; BMI 24.5
--- NOTE | 2023-09-11 18:35 | ED_ITS ---
HPI - General Adult General Chief complaint: General Medical Stated complaint: ?seizure Time Seen by Provider: 09/11/23 19:01 Source: patient and other (friend) Mode of arrival: ambulatory Limitations: other (yelling out loud in spasms most of history from friend) History of Present Illness ED Provider: SADE HPI narrative: 48 yo female with PMH of endometriosis, L sided numbness of her body, spasms, functional neurological disorder, here with c/o 2 weeks of increased stress which is triggering her to have spasms and pain in regards to her functional neurological disorder and autism. She is here with a friend who reports that ativan has helped in the past and not gabapentin. She has to see her PCP at [facility] to help her. She is only taking methylphenidate right now for ADHD. She has had these episodes before and has been worked up by staff in past MD complaint: spasms, anxiety, stress Onset (ago): week(s) (2) Location: back, left, right, upper extremity and lower extremity Radiation: non-radiation Severity: severe Quality: other (throbbing) Pain Consistency: intermittent Relieving factors: none Exacerbating factors: other (spasm) Associated symptoms: denies other symptoms Treatments prior to arrival: none Related Data Home Medications ?Medication ?Instructions ?Recorded ?Confirmed cetirizine 10 mg capsule (Zyrtec) 10 mg PO DAILY 12/07/19 12/07/19 citalopram 20 mg tablet 20 mg PO DAILY 12/07/19 12/07/19 estradiol 0.01% (0.1 mg/gram) 1 applic vaginal 3XW 12/07/19 12/07/19 vaginal cream hydroxyzine HCl 25 mg tablet 1 tab PO DAILY 12/07/19 12/07/19 naproxen sodium 500 mg 500 mg PO Q4-6H 12/07/19 12/07/19 tablet,extended release omeprazole 20 mg tablet,delayed 20 mg PO DAILY 12/07/19 12/07/19 release oxybutynin chloride 10 mg 1 tab PO DAILY 12/07/19 12/07/19 tablet,extended release 24 hr Previous Rx's ?Medication ?Instructions ?Recorded cyclobenzaprine 10 mg tablet 10 mg PO TID PRN pain #14 tabs 09/19/20 lidocaine 4 % topical patch 1 patch topical DAILY PRN pain #30 10/10/21 ea cyclobenzaprine 5 mg tablet 5 mg PO TID PRN muscle spasm #10 01/20/23 tabs prednisone 20 mg tablet 40 mg (2 x 20 mg) PO DAILY #8 tabs 01/20/23 diazepam 5 mg tablet (Valium) 5 mg PO TID PRN muscle spasm #10 09/11/23 tabs Allergies Allergy/AdvReac Type Severity Reaction Status Date / Time vancomycin [VANCOMYCIN] Allergy Mild RASH, Verified 09/11/23 18:34 itchy scalp doxycycline [DOXYCYCLINE] AdvReac Intermediate VOMITING, Verified 09/11/23 18:34 DIARRHEA shellfish derived AdvReac Mild NAUSEA Verified 09/11/23 18:34 seasonal/environmental Allergy Unknown sinusitis Uncoded 01/20/23 16:08 allergi Review of Systems 2 Review of Systems: Constitutional : No Fever, No Chills ENT/Mouth : No Ear Pain, No Nasal Congestion, No sore throat Eyes: No Eye Pain, No Swelling, No Redness Cardiovascular : No Chest Pain, No SOB Respiratory : No Cough, No Sputum, No Dyspnea Gastrointestinal : No Nausea, No Vomiting, No Diarrhea, No Hematochezia, No Melena Genitourinary : No Dysuria, No Urinary Frequency, No Hematuria Musculoskeletal : pos Myalgias,pos muscle spasm Skin : No Skin Lesions, No rash Neuro : No Weakness, No Numbness, No Paresthesias, No Dizziness, No Headache Psych : positive Anxiety, noDepression, noSI/HI All other systems reviewed and are negative PMFSH Past Medical History Attestation statement: The following information was validated with the patient. Source: old records reviewed Medical History Bladder spasm Endometriosis Surgical History History of hysterectomy Social History Social History Alcohol intake: current Alcohol intake frequency: holidays/special occasions only Patient Tobacco Use Status: Tobacco use Unknown Smoked in Last 30 Days: No Use of substances other than those prescribed or required for medical reasons: No Advance Directives: No Advance Directives Information Provided: No Patient : No Physical Exam ED Vital Signs: Vital Signs - 24 hr 09/11/23 18:33 09/11/23 20:00 Temperature 97.8 F 98.3 F Pulse Rate 123 H 88 Respiratory Rate 22 H 18 Blood Pressure 192/109 H 132/85 Pulse Oximetry 99 100 Oxygen Delivery Method Room Air Room Air BMI result Body Mass Index 24.5 Appearance: Alert. Oriented X3. No acute distress. yelling out loud in spasms crying then able to calm down but most of history from friend Eyes: Pupils equal, round and reactive to light. ENT: Pharynx normal. Neck: Normal inspection. Neck supple. CVS: Normal heart rate and rhythm. Pulses normal. Respiratory: No respiratory distress. Breath sounds normal. Abdomen: Soft and non-tender. Skin: Skin warm and dry. Normal skin color. Normal skin turgor. Extremities: No lower extremity edema. No calf ttp Neuro: Oriented X 3. No motor deficit. No sensory deficit. seems to be moving all extremities Course Course Course Narrative: This is a Rapid Medical Examination (RME) performed by Danis Hess PA-C in triage. Full HPI, ROS, assessment and treatment plan per primary provider in the Main ED. 48 yo female hx of autism and functional neurologic disorder here for increased body spasms and pain. Patient seen at [facility] for this. Was following with Neurology at [facility] however her neurologist has not left practice and she has been unable to follow up with him for months. She was originally taking gabapentin has been out of this medication was also treated with Ativan at [facility]. + patient sporadically screaming out. curled up in ball on triage chair. Plan: labs, UA Medications Administered Discontinued Medications Generic Name Dose Route Start Last Admin Trade Name Freq PRN Reason Stop Dose Admin Lorazepam 2 mg 09/11/23 19:51 09/11/23 20:16 Lorazepam 2 Mg/Ml Vial IVPUSH 09/11/23 19:52 2 mg ONCE ONE Administration Medical Decision Making Medical Decision Making MDM Narrative: 48 yo female with PMH of endometriosis, L sided numbness of her body, spasms, neurocognitive disorder, here with c/o stress triggering her autism and functional neurologic disorder she has had this worked up before with multiple episodes at this time will need IV ativan and if she feels better Rx for PO ativan. No concern for new neurologic condition Differential Diagnosis Differential Diagnoses: The differential diagnosis associated with the presentation includes functional neurologic disorder, stress Admission/Observation Consideration of admission/observation: Escalation of care including admission/observation considered hopefully she will improve with IV ativan and be able to be DC feels better and wants to go home Lab Data MDM Lab Attestation statement: I reviewed the patient's lab results. 09/11/23 19:38 09/11/23 19:38 Labs: Lab Results 09/11/23 09/11/23 Range/Units 19:29 19:38 WBC 6.6 (4.8-10.8) X10*3/uL RBC 4.32 (4.20-5.50) X10*6/uL Hgb 12.9 (12.0-16.0) g/dl Hct 38.3 (37.0-47.0) % MCV 88.7 (80.0-98.0) fL MCH 29.9 (27.0-33.0) pg MCHC 33.7 (31.0-35.0) g/dl RDW 12.3 (11.0-16.0) % Plt Count 203 (160-400) X10*3/uL MPV 9.5 (9.4-12.3) fL Immature Gran % (Auto) 0.3 (0.0-0.4) % Neut % (Auto) 66.2 (45-73) % Lymph % (Auto) 27.9 (20-40) % [place] % (Auto) 4.6 (2-11) % Eos % (Auto) 0.5 (0-4) % Baso % (Auto) 0.5 (0-2) % Lymph # (Auto) 1.8 (1.2-4.9) X10*3/uL [place] # (Auto) 0.3 (0.1-1.2) X10*3/uL Eos # (Auto) 0.0 (0.0-0.4) X10*3/uL Baso # (Auto) 0.0 (0.0-0.2) X10*3/uL Abs Immat Gran (auto) 0.02 (0.00-0.03) X10*3/uL Absolute Neuts (auto) 4.3 (2.0-8.3) x10*3/uL Absolute Nucleated RBC 0.000 (0.0-0.012) X10*3/uL Nucleated RBC % (auto) 0.0 (0.0-0.2) /100WBC ESR 3 (0-20) MM/HR Sodium 141 (135-145) mmol/L Potassium 3.3 (3.3-5.1) mmol/L Chloride 108 (96-108) mmol/L Carbon Dioxide 25 (22-29) mmol/L Anion Gap 11 L (12-20) BUN 14 (9-16) mg/dL Creatinine 0.81 (0.5-1.4) mg/dL Estim Creat Clear Calc 77.2 Estimated GFR > 60 Random Glucose 144 H (60-115) mg/dL Calcium 9.5 (8.4-10.2) mg/dL Magnesium 2.0 (1.6-2.6) mg/dL Total Bilirubin 1.0 (0.0-1.0) mg/dL AST 17 (5-31) U/L ALT 10 (0-31) U/L Alkaline Phosphatase 55 (39-117) U/L C-Reactive Protein < 0.10 (< or = 0.50) mg/dL Total Protein 7.0 (6.5-8.0) g/dL Albumin 4.4 (3.5-5.0) g/dL Urine Color Yellow Urine Appearance Clear Urine pH 6.5 (5.0-9.0) Ur Specific [place] 1.020 (1.005-1.025) Urine Protein Negative (Neg-Trace) mg/dL Urine Glucose (UA) Negative (Negative) mg/dL Urine Ketones Trace (Negative) mg/dL Urine Blood Negative (Negative) Urine Nitrite Negative (Negative) Ur Leukocyte Esterase Negative (Negative) Urine Test NEGATIVE (NEGATIVE) Independent Historian Clinical information obtained from an independent historian. History obtained from or confirmed by: Friend External Record Review External record reviewed: Inpatient record Prescription Management I considered prescription management with: Other Discharge Plan Discharge Clinical Impression: Functional neurological symptom disorder with attacks or seizures Patient Disposition: Home, Self-Care Instructions: Muscle Spasm (ED) Additional Instructions: labs reassuring, normal urine please follow up with your primary care so you can have medications for shelter care of your conditions return for any worsening symptoms or concerns. Prescriptions: New diazepam [Valium] 5 mg tablet 5 mg PO TID PRN (Reason: muscle spasm) Qty: 10 0RF Rx Instructions: partial fill is okay No Action oxybutynin chloride 10 mg tablet extended release 24hr 1 tab PO DAILY naproxen sodium 500 mg Tablet Extended Release 500 mg PO Q4-6H citalopram 20 mg Tablet 20 mg PO DAILY hydroxyzine HCl 25 mg tablet 1 tab PO DAILY estradiol 0.01 % (0.1 mg/gram) cream 1 applic vaginal 3XW omeprazole 20 mg Tablet,Delayed Release (Dr/Ec) 20 mg PO DAILY Zyrtec 10 mg Capsule 10 mg PO DAILY cyclobenzaprine 10 mg tablet 10 mg PO TID PRN (Reason: pain) Qty: 14 0RF lidocaine 4 % adhesive patch,medicated 1 patch topical DAILY PRN (Reason: pain) Qty: 30 0RF cyclobenzaprine 5 mg tablet 5 mg PO TID PRN (Reason: muscle spasm) Qty: 10 0RF prednisone 20 mg tablet 40 mg PO DAILY Qty: 8 0RF Print Language: Divehi
[2023-09-11 19:36] LABS: Appearance Urine Clear; Color Urine Yellow; Glucose Urine UA Negative (Negative); Leukocyte Esterase Urine Negative (Negative); Nitrite Urine Negative (Negative); PH 6.5 (5.0-9.0); Urine Blood Negative (Negative); Urine Ketones Trace mg/dL (Negative); Urine Protein Negative (Neg-Trace)
[2023-09-11 19:37] LABS: UPreg QC Valid YES; Urine Pregnancy NEGATIVE (NEGATIVE)
[2023-09-11 19:43] LABS: MANUAL DIFF FLAG NO
[2023-09-11 19:54] LABS: Basophils Percent Auto 0.5 % (0-2); Eosinophils Percent Auto 0.5 % (0-4); Hematocrit 38.3 % (37.0-47.0); Hemoglobin 12.9 g/dl (12.0-16.0); Imm Gran Abs Auto 0.02 X10*3/uL (0.00-0.03); Imm Gran Pct Auto 0.3 % (0.0-0.4); Lymphocytes Absolute Auto 1.8 X10*3/uL (1.2-4.9); Lymphocytes Percent Auto 27.9 % (20-40); Mean Corpuscular HGB Conc 33.7 g/dl (31.0-35.0); Mean Corpuscular Hemoglobin 29.9 pg (27.0-33.0); Mean Corpuscular Volume 88.7 fL (80.0-98.0); Mean Platelet Volume 9.5 fL (9.4-12.3); Monocytes Absolute Auto 0.3 X10*3/uL (0.1-1.2); Monocytes Percent Auto 4.6 % (2-11); Neutrophils Absolute Auto 4.3 x10*3/uL (2.0-8.3); Neutrophils Percent Auto 66.2 % (45-73); Platelet Count 203 X10*3/uL (160-400); Red Blood Count 4.32 X10*6/uL (4.20-5.50); Red Cell Distribution Width 12.3 % (11.0-16.0); White Blood Count 6.6 X10*3/uL (4.8-10.8)
[2023-09-11 20:00] VITALS: BP 132/85; PULSE 88; RESP 18; TEMP 36.8; O2SAT 100
[2023-09-11 20:13] LABS: Alanine Aminotransferase 10 U/L (0-31); Albumin Level 4.4 g/dL (3.5-5.0); Alkaline Phosphatase 55 U/L (39-117); Anion Gap 11 (12-20); Aspartate Amino Transferase 17 U/L (5-31); Blood Urea Nitrogen 14 mg/dL (9-16); C Reactive Protein < 0.10 mg/dL (< or = 0.50); Calcium 9.5 mg/dL (8.4-10.2); Carbon Dioxide 25 mmol/L (22-29); Chloride 108 mmol/L (96-108); Creatinine Clr Calc Pharmacy 77.2; Estimated Glomerular Filt Rate > 60; Glucose Random 144 mg/dL (60-115); Potassium 3.3 mmol/L (3.3-5.1); Sodium 141 mmol/L (135-145)
[2023-09-11] MEDS: LORazepam 2 MG/ML VIAL IVPUSH (20:16)
--- NOTE | 2023-09-11 20:18 | PC.NURSE ---
this rn assumed care of pt, pt a&ox4, respirations even and unlabored. pt reporting hx of a neurological disorder that results in increased seizure activity. pt reports increasing stress in life that has been causing anxiety, pt tearful at this time. pt denies thoughts of si. pt medicated per mar at this time.
[2023-09-11 20:34] LABS: Erythrocyte Sedimentation Rate 3 MM/HR (0-20)
[2023-09-11 20:55] VITALS: BP 132/85; PULSE 88; RESP 16; TEMP 36.2; O2SAT 98
== END 2023-09-11 21:14 | disposition home or self-care (01) ==
PROVIDERS: Physician Assistant Medical; Emergency Provider Emergency Medicine
DX: R56.9 Unspecified convulsions (principal); R29.90 Unspecified symptoms and signs involving the nervous system; Z79.899 Other long term (current) drug therapy
CPT/HCPCS: 36415; 80053; 81003; 81025; 83735; 85025; 85652; 86140; 96374; 99284; J2060

== ENCOUNTER 2024-04-02 21:33 | Emergency (ER) | payer OTHER, SELFPAY ==
--- NOTE | ~2024-04-02 | XR_ITS ---
CLINICAL HISTORY: cough 2 view chest x-ray Comparison: Chest CT from 04/14/2019 Findings: No consolidation, pneumothorax, or pleural effusion. Normal size heart. Degenerative changes include imaged AC joints. IMPRESSION: No consolidation. This document has been electronically signed by: Dallin Spencer MD on 04/02/2024 22:32:32
[2024-04-02 21:54] VITALS: BP 122/59; PULSE 72; RESP 20; TEMP 37.3; O2SAT 98; BMI 25.0
[2024-04-02 22:42] LABS: Influenza A PCR POSITIVE (Negative); Influenza B PCR NEGATIVE (Negative); Resp Syncy Virus RNA Qual PCR NEGATIVE (Negative); SARS COV2 PCR INHOUSE NEGATIVE (Negative)
== END 2024-04-03 01:35 | disposition left against medical advice (07) ==
LOC: HO.ED 04-03 01:12
PROVIDERS: Emergency Provider Emergency Medicine
DX: R05.9 Cough, unspecified (principal); R50.9 Fever, unspecified; Z03.818 Encounter for observation for suspected exposure to other biological agents ruled out
CPT/HCPCS: 0241U; 71046; 99281

== ENCOUNTER → 2024-04-02 21:58 | Outpatient (BNV) | payer OTHER, SELFPAY | PROVIDERS: Visit Provider Radiology Neuroradiology | DX: R05.9 Cough, unspecified (principal) | CPT/HCPCS: 71046 ==

== ENCOUNTER 2024-07-19 15:04 | Emergency (ER) | payer OTHER, SELFPAY ==
--- NOTE | ~2024-07-19 | CT_ITS ---
CLINICAL HISTORY: R ABD pain, diarrhea CT abdomen and pelvis with contrast Comparison: CT - CT ABDOMEN PELVIS W IV CON - 07/19/24 17:57 EDT Findings: No consolidation or effusion. The liver, gallbladder, spleen, adrenal glands and pancreas are unremarkable. Kidneys, ureters and bladder are normal. Normal appendix. Mild fecal retention. Scattered gas and fluid throughout nondistended small bowel. Multiple left adnexal cysts are suggested. The uterus appears absent. No acute osseous finding. Impression: No definite acute process. Multiple left ovarian cysts. Normal appendix. Mild colonic fecal retention. This document has been electronically signed by: Deandre Hahn MD on 07/19/2024 19:39:15
--- NOTE | ~2024-07-19 | US_ITS ---
CLINICAL HISTORY: RUQ pain, nausea, diarrhea US abdomen limited, gallbladder only Comparison: None Findings: The common duct is 3 mm in diameter. The gallbladder is normal. There is no sonographic Gill sign. IMPRESSION: Normal gallbladder. This document has been electronically signed by: Deandre Hahn MD on 07/19/2024 16:15:53
[2024-07-19 15:06] VITALS: BP 152/83; PULSE 91; RESP 17; TEMP 36.9; O2SAT 98; BMI 25.0
--- NOTE | 2024-07-19 15:06 | ED.ABDPAIN ---
HPI - Abdominal Pain General Chief Complaint: Abdominal Pain Stated Complaint: R side abd pain Time Seen by Provider: 07/19/24 16:58 Source: patient Mode of arrival: ambulatory Limitations: no limitations History of Present Illness ED Provider: blayne barton np HPI narrative: Patient is a 41-year-old female who presents emergency department for evaluation. She admits that over the past week she has been experiencing multiple episodes of watery diarrhea daily. However today as she was mowing the lawn she began experiencing a pain to the right upper portion of her abdomen that is constant in nature and severe. She reports some history of a similar pain occurring at least a couple times in the past but states she did not seek evaluation for this. Denies fevers, chills, chest pain, nausea, vomiting, hematemesis, constipation, hematochezia, melena, dysuria, urinary frequency, urinary urgency, urinary hesitancy, hematuria. denies pelvic pain or abnormal vaginal discharge. Denies concern for sexually transmitted infection. Denies concern for . Related Data Home Medications ?Medication ?Instructions ?Recorded ?Confirmed cetirizine 10 mg capsule (Zyrtec) 10 mg PO DAILY 12/07/19 12/07/19 citalopram 20 mg tablet 20 mg PO DAILY 12/07/19 12/07/19 estradiol 0.01% (0.1 mg/gram) 1 applic vaginal 3XW 12/07/19 12/07/19 vaginal cream hydroxyzine HCl 25 mg tablet 1 tab PO DAILY 12/07/19 12/07/19 naproxen sodium 500 mg 500 mg PO Q4-6H 12/07/19 12/07/19 tablet,extended release omeprazole 20 mg tablet,delayed 20 mg PO DAILY 12/07/19 12/07/19 release oxybutynin chloride 10 mg 1 tab PO DAILY 12/07/19 12/07/19 tablet,extended release 24 hr Previous Rx's ?Medication ?Instructions ?Recorded cyclobenzaprine 10 mg tablet 10 mg PO TID PRN pain #14 tabs 09/19/20 lidocaine 4 % topical patch 1 patch topical DAILY PRN pain #30 10/10/21 ea cyclobenzaprine 5 mg tablet 5 mg PO TID PRN muscle spasm #10 01/20/23 tabs prednisone 20 mg tablet 40 mg (2 x 20 mg) PO DAILY #8 tabs 01/20/23 diazepam 5 mg tablet (Valium) 5 mg PO TID PRN muscle spasm #10 09/11/23 tabs dicyclomine 10 mg capsule 10 mg PO BID #14 caps 07/19/24 Allergies Allergy/AdvReac Type Severity Reaction Status Date / Time vancomycin [VANCOMYCIN] Allergy Mild RASH, Verified 07/19/24 15:08 itchy scalp doxycycline [DOXYCYCLINE] AdvReac Intermediate VOMITING, Verified 07/19/24 15:08 DIARRHEA shellfish derived AdvReac Mild NAUSEA Verified 07/19/24 15:08 seasonal/environmental Allergy Unknown sinusitis Uncoded 07/19/24 15:08 allergi Review of Systems Review of Systems Yes all other systems are reviewed and are negative [facility] Past Medical History Attestation statement: The following information was validated with the patient. Source: old records reviewed Medical History Bladder spasm Endometriosis Surgical History History of hysterectomy Social History Social History Alcohol intake: current Alcohol intake frequency: holidays/special occasions only Patient Tobacco Use Status: Tobacco use Unknown Advance Directives: No Advance Directives Information Provided: No Do you have a plan to hurt others: No Plan Physical Exam ED Vital Signs: Vital Signs - 24 hr 07/19/24 15:06 07/19/24 21:07 Temperature 98.4 F 97.9 F Pulse Rate 91 60 Respiratory Rate 17 16 Blood Pressure 152/83 H 100/58 L Pulse Oximetry 98 98 Oxygen Delivery Method Room Air Room Air BMI result Body Mass Index 25.0 Appearance: Alert.?Oriented to person, place and time. No acute distress.?Normal affect.?? Neck: Normal inspection.? Neck supple.?? CVS: Heart sounds normal. Normal heart rate and rhythm.? Pulses normal.?? Respiratory: No respiratory distress.? Lung sounds clear to auscultation bilaterally?? Abdomen: Soft with right upper quadrant tenderness upon palpation. Negative psoas sign. Negative Rovsing sign. Negative Gill sign. No CVAT. Normoactive bowel sounds. No pulsatile mass.?? Skin: Skin warm and dry.? Normal skin color.? Extremities: No lower extremity edema.? Neuro: Moves all extremities spontaneously. Sensation intact bilaterally. Ambulates with normal steady gait. Course Course Course Narrative: This is a Rapid Medical Exam performed in triage by Daina Ford PA-C. Full HPI, ROS and PE to be performed by primary ED provider. 49 yo F w/PMHx bladder spasm, endometriosis presenting to the ED c/o diarrhea x1 week, now with R sided abdominal pain x [employer] s/p mowing lawn. States diarrhea is now watery. denies fever PE: abdomen soft w/RUQ ttp. No rash Plan: Labs, UA, US Reevaluation(s) Reevaluation #1: Suspect symptoms secondary to gastroenteritis, she may be experiencing pain in this area from gastrointestinal cramping for which I will send dicyclomine to the pharmacy, alternatively this may be muscular strain as a onset did occur as she was mowing the lawn today. Advised outpatient follow-up with primary care provider, strict worrisome signs and symptoms that would warrant re-evaluation emergency department. All questions answered Medical Decision Making Medical Decision Making MDM Narrative: Patient is a 41-year-old female who presents emergency department for evaluation of diarrhea over the past week with new onset of right upper quadrant abdominal pain as of 2 day as per HPI. She is exquisitely tender in the right upper quadrant, negative Gill sign. Has no associated nausea vomiting food intolerance, no associated symptoms or CVA tenderness. She arrives without signs of systemic toxicity afebrile without tachycardia, no hypotension. She denies associated chest pain shortness of breath or URI symptoms to suggest pneumonia as etiology for pain, no clinical evidence of DVT or history of VTE/malignancy to suggest a pulmonary embolism right lower lobe. No endorsement of chest pain, unlikely ACS. Possibly cholecystitis, choledocholithiasis no fever jaundice to suggest acute cholangitis, she may possibly be having biliary colic secondary to cholelithiasis. Denies acid reflux, there is no tenderness over her epigastrium left upper quadrant to suggest gastritis no hematemesis to suggest PUD. She denies alcohol consumption or history of diabetes making pancreatitis unlikely. No lower abdominal tenderness or rebound tenderness at McBurney's point to suggest appendicitis, however given her persistent diarrhea over the past week, may possibly be a gastroenteritis, diverticulitis. Will obtain serum labs in addition to CT of the abdomen and pelvis for further evaluation Differential Diagnosis Differential Diagnoses: The differential diagnosis associated with the presentation includes (See narrative above) Admission/Observation Consideration of admission/observation: Escalation of care including admission/observation considered (See narrative above ) Lab Data MDM Lab Attestation statement: I reviewed the patient's lab results. CBC is without leukocytosis, no significant anemia or thrombocytopenia. No significant electrolyte derangement, no DAVID. Total bilirubin elevated at 1.5 direct bili is normal, LFTs otherwise unremarkable lipase is normal. Urinalysis without evidence of infection. HCG is negative. Viral serologies are negative. COVID orders have been placed for stool GI panel as well as C difficile, no bowel movement produced in the ED for testing at this time 07/19/24 15:42 07/19/24 15:42 Labs: Lab Results 07/19/24 Range/Units 15:42 WBC 7.2 (4.8-10.8) X10*3/uL RBC 4.04 L (4.20-5.50) X10*6/uL Hgb 12.2 (12.0-16.0) g/dl Hct 36.2 L (37.0-47.0) % MCV 89.6 (80.0-98.0) fL MCH 30.2 (27.0-33.0) pg MCHC 33.7 (31.0-35.0) g/dl RDW 13.1 (11.0-16.0) % Plt Count 245 (160-400) X10*3/uL MPV 9.5 (9.4-12.3) fL Immature Gran % (Auto) 0.3 (0.0-0.4) % Neut % (Auto) 69.9 (45-73) % Lymph % (Auto) 21.9 (20-40) % [place] % (Auto) 7.2 (2-11) % Eos % (Auto) 0.3 (0-4) % Baso % (Auto) 0.4 (0-2) % Lymph # (Auto) 1.6 (1.2-4.9) X10*3/uL [place] # (Auto) 0.5 (0.1-1.2) X10*3/uL Eos # (Auto) 0.0 (0.0-0.4) X10*3/uL Baso # (Auto) 0.0 (0.0-0.2) X10*3/uL Abs Immat Gran (auto) 0.02 (0.00-0.03) X10*3/uL Absolute Neuts (auto) 5.0 (2.0-8.3) x10*3/uL Absolute Nucleated RBC 0.000 (0.0-0.012) X10*3/uL Nucleated RBC % (auto) 0.0 (0.0-0.2) /100WBC Sodium 140 (135-145) mmol/L Potassium 3.3 (3.3-5.1) mmol/L Chloride 105 (96-108) mmol/L Carbon Dioxide 30 H (22-29) mmol/L Anion Gap 8 L (12-20) BUN 16 (9-16) mg/dL Creatinine 0.94 (0.5-1.4) mg/dL Estim Creat Clear Calc 65.8 Estimated GFR > 60 Random Glucose 79 (60-115) mg/dL Calcium 9.6 (8.4-10.2) mg/dL Magnesium 2.1 (1.6-2.6) mg/dL Total Bilirubin 1.5 H (0.0-1.0) mg/dL Direct Bilirubin 0.5 (0.0-0.5) mg/dL AST 24 (5-31) U/L ALT 19 (0-31) U/L Alkaline Phosphatase 47 (39-117) U/L Total Protein 7.1 (6.5-8.0) g/dL Albumin 4.6 (3.5-5.0) g/dL Lipase 38 (8-78) U/L Urine Color Yellow Urine Appearance Clear Urine pH 7.0 (5.0-9.0) Ur Specific [place] 1.015 (1.005-1.025) Urine Protein Negative (Neg-Trace) mg/dL Urine Glucose (UA) Negative (Negative) mg/dL Urine Ketones Negative (Negative) mg/dL Urine Blood Negative (Negative) Urine Nitrite Negative (Negative) Ur Leukocyte Esterase Negative (Negative) Urine Test NEGATIVE (NEGATIVE) Influenza Type A (PCR) NEGATIVE (Negative) Influenza Type B (PCR) NEGATIVE (Negative) RSV RNA Qual (PCR) NEGATIVE (Negative) SARS-CoV-2 RNA (RT-PCR) NEGATIVE (Negative) Radiology Impression Discussion of test interpretation with radiology: I have reviewed the radiologist's reading. Radiologist Impression: US abdomen limited, gallbladder only Comparison: None Findings: The common duct is 3 mm in diameter. The gallbladder is normal. There is no sonographic Gill sign. IMPRESSION: Normal gallbladder. CT abdomen and pelvis with contrast Comparison: CT - CT ABDOMEN PELVIS W IV CON - 07/19/24 17:57 EDT Findings: No consolidation or effusion. The liver, gallbladder, spleen, adrenal glands and pancreas are unremarkable. Kidneys, ureters and bladder are normal. Normal appendix. Mild fecal retention. Scattered gas and fluid throughout nondistended small bowel. Multiple left adnexal cysts are suggested. The uterus appears absent. No acute osseous finding. Impression: No definite acute process. Multiple left ovarian cysts. Normal appendix. Mild colonic fecal retention. Medications Administered Discontinued Medications Generic Name Dose Route Start Last Admin Trade Name Freq PRN Reason Stop Dose Admin Sodium Chloride 1,000 mls @ 999 mls/hr 07/19/24 18:00 07/19/24 19:24 Ns IV 07/19/24 19:00 Infused .[id number] BRITTNEY Infusion Iohexol 100 ml 07/19/24 18:41 07/19/24 18:45 Iohexol 350 Mg/Ml 100 Ml Infus..Btl IV 07/19/24 18:42 85 ml ONCE ONE Administration Morphine Sulfate 2 mg 07/19/24 17:52 07/19/24 18:14 Morphine Sulfate 2 Mg/Ml Cartridge IVPUSH 07/19/24 17:53 2 mg ONCE ONE Administration Protocol Ondansetron HCl 4 mg 07/19/24 17:52 07/19/24 18:03 Ondansetron Hcl 4 Mg/2 Ml Vial IVPUSH 07/19/24 17:53 4 mg ONCE ONE Administration Critical Care Time Critical Care Time Critical Care Time: Yes Total Critical Care Time: 35 Attestation: I personally attest to this critical care time spent taking care of the patient exclusive of all other billable procedures was approximately 35 minutes including initial evaluation of patient, ordering tests, morphine IV for analgesia, documentation, re-evaluation. Discharge Plan Discharge Clinical Impression: Gastroenteritis Patient Disposition: Home, Self-Care Instructions: Gastroenteritis (ED) Additional Instructions: Be sure that you are staying well hydrated. Introduce a bland diet including crackers, bananas, rice, soup, toast, and boiled vegetables. This may progress to plain baked or boiled chicken or turkey. Avoid dairy products or foods high in fat or grease. I have sent a prescription for dicyclomine to the pharmacy to help with your abdominal pain. CT scan did not show abnormal findings of your gallbladder, evidence of appendicitis, I can see that there is stool within your colon, suspect that you have a gastrointestinal illness either from viral infection or food-borne illness. Return back to emergency department any new or worsening symptoms or concerns. Please contact your primary care provider to arrange for a follow-up visit. Prescriptions: New dicyclomine 10 mg capsule 10 mg PO BID Qty: 14 0RF No Action oxybutynin chloride 10 mg tablet extended release 24hr 1 tab PO DAILY naproxen sodium 500 mg Tablet Extended Release 500 mg PO Q4-6H citalopram 20 mg Tablet 20 mg PO DAILY hydroxyzine HCl 25 mg tablet 1 tab PO DAILY estradiol 0.01 % (0.1 mg/gram) cream 1 applic vaginal 3XW omeprazole 20 mg Tablet,Delayed Release (Dr/Ec) 20 mg PO DAILY Zyrtec 10 mg Capsule 10 mg PO DAILY cyclobenzaprine 10 mg tablet 10 mg PO TID PRN (Reason: pain) Qty: 14 0RF lidocaine 4 % adhesive patch,medicated 1 patch topical DAILY PRN (Reason: pain) Qty: 30 0RF cyclobenzaprine 5 mg tablet 5 mg PO TID PRN (Reason: muscle spasm) Qty: 10 0RF prednisone 20 mg tablet 40 mg PO DAILY Qty: 8 0RF diazepam [Valium] 5 mg tablet 5 mg PO TID PRN (Reason: muscle spasm) Qty: 10 0RF Rx Instructions: partial fill is okay Referrals: Ciara Rachel NP [Primary Care Provider] - Interventions: ED Discharge Assessment Last Done: 07/19/24 21:07 Discharge Date/Time: 07/19/24 21:09 Print Language: Armenian
[2024-07-19 15:47] LABS: MANUAL DIFF FLAG NO
[2024-07-19 15:48] LABS: Basophils Percent Auto 0.4 % (0-2); Eosinophils Percent Auto 0.3 % (0-4); Hematocrit 36.2 % (37.0-47.0); Hemoglobin 12.2 g/dl (12.0-16.0); Imm Gran Abs Auto 0.02 X10*3/uL (0.00-0.03); Imm Gran Pct Auto 0.3 % (0.0-0.4); Lymphocytes Absolute Auto 1.6 X10*3/uL (1.2-4.9); Lymphocytes Percent Auto 21.9 % (20-40); Mean Corpuscular HGB Conc 33.7 g/dl (31.0-35.0); Mean Corpuscular Hemoglobin 30.2 pg (27.0-33.0); Mean Corpuscular Volume 89.6 fL (80.0-98.0); Mean Platelet Volume 9.5 fL (9.4-12.3); Monocytes Absolute Auto 0.5 X10*3/uL (0.1-1.2); Monocytes Percent Auto 7.2 % (2-11); Neutrophils Percent Auto 69.9 % (45-73); Platelet Count 245 X10*3/uL (160-400); Red Blood Count 4.04 X10*6/uL (4.20-5.50); Red Cell Distribution Width 13.1 % (11.0-16.0); White Blood Count 7.2 X10*3/uL (4.8-10.8)
[2024-07-19 15:49] LABS: Appearance Urine Clear; Color Urine Yellow; Glucose Urine UA Negative (Negative); Leukocyte Esterase Urine Negative (Negative); Nitrite Urine Negative (Negative); Specific Gravity - Urine 1.015 (1.005-1.025); Urine Blood Negative (Negative); Urine Ketones Negative (Negative); Urine Protein Negative (Neg-Trace)
[2024-07-19 16:03] LABS: UPreg QC Valid YES; Urine Pregnancy NEGATIVE (NEGATIVE)
[2024-07-19 16:12] LABS: Alanine Aminotransferase 19 U/L (0-31); Albumin Level 4.6 g/dL (3.5-5.0); Alkaline Phosphatase 47 U/L (39-117); Anion Gap 8 (12-20); Aspartate Amino Transferase 24 U/L (5-31); Bilirubin Direct 0.5 mg/dL (0.0-0.5); Bilirubin Total 1.5 mg/dL (0.0-1.0); Blood Urea Nitrogen 16 mg/dL (9-16); Calcium 9.6 mg/dL (8.4-10.2); Carbon Dioxide 30 mmol/L (22-29); Chloride 105 mmol/L (96-108); Creatinine Clr Calc Pharmacy 65.8; Estimated Glomerular Filt Rate > 60; Glucose Random 79 mg/dL (60-115); Lipase 38 U/L (8-78); Magnesium 2.1 mg/dL (1.6-2.6); Potassium 3.3 mmol/L (3.3-5.1); Sodium 140 mmol/L (135-145); Total Protein 7.1 g/dL (6.5-8.0)
[2024-07-19 16:35] LABS: Influenza A PCR NEGATIVE (Negative); Influenza B PCR NEGATIVE (Negative); Resp Syncy Virus RNA Qual PCR NEGATIVE (Negative); SARS COV2 PCR INHOUSE NEGATIVE (Negative)
[2024-07-19] MEDS: ondansetron HCL 4 MG/2 ML VIAL IVPUSH (18:03)
[2024-07-19] MEDS: 0.9 % Sodium Chloride 1,000 ML 999 ML IV (18:04)
[2024-07-19] MEDS: Morphine Sulfate 2 MG/ML CARTRIDGE IVPUSH (18:14)
[2024-07-19] MEDS: iohexoL 350 MG/ML 100 ML INFUS..BTL IV (18:45)
[2024-07-19 21:07] VITALS: BP 100/58; PULSE 60; RESP 16; TEMP 36.6; O2SAT 98
== END 2024-07-19 21:09 | disposition home or self-care (01) ==
PROVIDERS: Physician Assistant; Emergency Provider Emergency Medicine; PCP Nurse Practitioner Family
DX: K52.9 Noninfective gastroenteritis and colitis, unspecified (principal); R10.11 Right upper quadrant pain; Z03.818 Encounter for observation for suspected exposure to other biological agents ruled out
CPT/HCPCS: 0241U; 36415; 74177; 76705; 80048; 80076; 81003; 81025; 83690; 83735; 85025; 96361; 96374; 96375; 99283; 99284; J2270; J2405; Q9967

== ENCOUNTER → 2024-07-19 15:08 | Outpatient (BNV) | payer OTHER, SELFPAY | PROVIDERS: Visit Provider Radiology Vascular & Interventional Radiology | DX: N83.292 Other ovarian cyst, left side (principal); R10.11 Right upper quadrant pain; R11.0 Nausea; R19.7 Diarrhea, unspecified | CPT/HCPCS: 74177; 76705 ==